=== PATIENT | male | born 1955 | race Caucasian/White ===

== ENCOUNTER 2018-08-19 10:38 | Inpatient (IN) | payer BC, OTHER ==
[~2018-08-19] VITALS: Ht 180.3 cm; Wt 73.9 kg
[2018-08-19] VITALS (9 sets, daily range): BP systolic 100–147; BP diastolic 63–83
[2018-08-19 11:06] LABS: BASOPHILS % (AUTO) 0 % (0-10); EOSINOPHILS % (AUTO) 1 % (0-10); LYMPHOCYTES # (AUTO) 1.4 X 10^3 (1.0-4.0); LYMPHOCYTES % (AUTO) 17 % (12-44); MEAN CORPUSCULAR HEMOGLOBIN 21 PG (25-34); MEAN CORPUSCULAR HGB CONC 28 G/DL (32-36); MEAN CORPUSCULAR VOLUME 76 FL (80-99); MEAN PLATELET VOLUME 10.1 FL (7.4-10.4); MONOCYTES # (AUTO) 0.7 X 10^3 (0.0-1.0); MONOCYTES % (AUTO) 9 % (0-12); NEUTROPHILS # (AUTO) 5.9 X 10^3 (1.8-7.8); NEUTROPHILS % (AUTO) 74 % (42-75); PLATELET COUNT 297 10^3/uL (130-400); RED CELL DISTRIBUTION WIDTH 17.6 % (10.0-14.5); WHITE BLOOD COUNT 8.1 10^3/uL (4.3-11.0)
[2018-08-19 11:09] LABS: HEMATOCRIT 20 % (40-54); HEMOGLOBIN 5.6 G/DL (13.3-17.7)
[2018-08-19 11:15] LABS: BILIRUBIN,URINE NEGATIVE (NEGATIVE); CLARITY,URINE CLEAR; COLOR,URINE YELLOW; GLUCOSE, URINE (UA) 1+ (NEGATIVE); KETONES,URINE NEGATIVE (NEGATIVE); LEUKOCYTE ESTERASE ,URINE NEGATIVE (NEGATIVE); NITRITE,URINE NEGATIVE (NEGATIVE); PH,URINE 6 (5-9); PROTEIN,URINE NEGATIVE (NEGATIVE); UROBILINOGEN,URINE NORMAL (NORMAL)
--- NOTE | 2018-08-19 11:18 | ED General ---
General Chief Complaint: General Problems/Pain Stated Complaint: LOW HEMOGLOBLIN Nursing Triage Note: PT PRESENTS TO ER VIA EMS FROM [facility] WITH CONCERNS OF LOW HEMOGLOBIN. PT STATES HE WAS FEELING WEAK THIS MORNING AND CO-WORKERS MENTIONED HE WAS PALE SO HE WENT TO THE CLINIC. THEY DID LABS WHICH REPORTED A HEMOGLOBIN OF 5.1 AND HEMATOCRIT OF 17. PT DENIES ANY BLOOD IN STOOL OR SECRETIONS. PT DENIES ANY PAIN BUT STATES HE IS UNCOMFORTABLE. Nursing Sepsis Screen: No Definite Risk Source of Information: Patient Exam Limitations: No Limitations History of Present Illness Date Seen by Provider: Aug 19, 2018 Time Seen by Provider: 10:45 Initial Comments Here with reported hemoglobin 5.1 is [place] [facility]. They sent him here by ambulance for concerns of the low hemoglobin. Patient denies chest pain but does admit to increasing shortness of breath. He presented to them because of concerns of family members and friends who stated that he looked pale. Denies vomiting blood or blood in his stool or urine. Does have history of stomach p roblems and takes qbdw-ayc-obwdiry acid lay midwife for that. Has not had problems with hemoglobin before. Denies any significant pain. In talking with him about this problem, patient states he does not want to stay in the hospital because he is afraid because the family members in the hospital. He states it makes him very anxious do think about it but he does want the evaluation. Timing/Duration: 1 Week, Changing Over Time Severity: Moderate Associated Systoms: No Chest Pain, No Cough, No Fever/Chills, No Nausea/Vomiting; Shortness of Air, Weakness Allergies and Home Medications Allergies Coded Allergies: No Known Drug Allergies (Unverified , 08/19/18) Patient Home Medication List Home Medication List Reviewed: Yes Review of Systems Review of Systems Constitutional: see HPI; No chills, No fever EENTM: no symptoms reported Respiratory: see HPI Cardiovascular: No chest pain, No palpitations Gastrointestinal: abdominal pain (epigastric); No nausea, No vomiting Genitourinary: no symptoms reported Musculoskeletal: no symptoms reported Skin: no symptoms reported Psychiatric/Neurological: Anxiety; Denies Headache; Weakness Hematologic/Lymphatic: Anemia; Denies Easy Bleeding All Other Systems Reviewed Negative Unless Noted: Yes Past [place]-Hvhhdi-Yerdxg Hx Past Med/Social Hx: Reviewed Nursing Past Med/Soc Hx Patient Social History Alcohol Use: Denies Use Recreational Drug Use: No Smoking Status: Current Everyday Smoker Type Used: Cigarettes Recent Foreign Travel: No Contact w/Someone Who Travel: No Recent Infectious Disease Expo: No Recent Hopitalizations: No Seasonal Allergies Seasonal Allergies: No Past Medical History Surgeries: Yes (SHOULDER ) Orthopedic Respiratory: No Cardiac: No Neurological: No Genitourinary: No Gastrointestinal: Yes Gastroesophageal Reflux Musculoskeletal: Yes Chronic Back Pain Endocrine: No HEENT: No Cancer: No Psychosocial: No Integumentary: No Blood Disorders: No Family Medical History Reviewed Nursing Family Hx Physical Exam Vital Signs Vital Signs - First Documented 08/19/18 10:38 Temp 98.0 Pulse 99 Resp 17 B/P (MAP) 150/73 (98) Pulse Ox 99 O2 Delivery Room Air Capillary Refill : Less Than 3 Seconds Height, Weight, BMI Height: 5'11.00" Weight: 163lbs. oz. 73.406488pu; BMI Method:Stated General Appearance: No Apparent Distress, WD/WN HEENT: PERRL/EOMI, Pharynx Normal, Pale Conjunctivae (L), Pale Conjunctivae (R) Neck: Full Range of Motion, Normal Inspection, Non Tender, Supple Respiratory: Lungs Clear, Normal Breath Sounds Cardiovascular: No Murmur, Tachycardia Gastrointestinal: Normal Bowel Sounds, No Organomegaly, No Pulsatile Mass, Non Tender, Soft Genital/Rectal: Heme Positive Stool; No Tenderness Back: Normal Inspection, No CVA Tenderness, No Vertebral Tenderness Extremity: Normal Range of Motion, Non Tender Neurologic/Psychiatric: Alert, Oriented x3 Skin: Normal Color, Warm/Dry Progress/Results/Core Measures Suspected Sepsis Recent Fever Within 48 Hours: No Infection Criteria Present: None New/Unexplained Altered Menta: No Sepsis Screen: No Definite Risk SIRS Temperature:98.0 Pulse: 99 Respiratory Rate: 17 Laboratory Tests 08/19/18 10:45: White Blood Count 8.1 Blood Pressure 150 /73 Mean: 98 Laboratory Tests 08/19/18 10:45: Platelet Count 297 Results/Orders Lab Results Laboratory Tests Test 08/19/18 10:45 08/19/18 11:08 Range/Units White Blood Count 8.1 4.3-11.0 10^3/uL Red Blood Count 2.64 L 4.35-5.85 10^6/uL Hemoglobin 5.6 *L 13.3-17.7 G/DL Hematocrit 20 *L 40-54 % Mean Corpuscular Volume 76 L 80-99 FL Mean Corpuscular Hemoglobin 21 L 25-34 PG Mean Corpuscular Hemoglobin Concent 28 L 32-36 G/DL Red Cell Distribution Width 17.6 H 10.0-14.5 % Platelet Count 297 130-400 10^3/uL Mean Platelet Volume 10.1 7.4-10.4 FL Neutrophils (%) (Auto) 74 42-75 % Lymphocytes (%) (Auto) 17 12-44 % Monocytes (%) (Auto) 9 0-12 % Eosinophils (%) (Auto) 1 0-10 % Basophils (%) (Auto) 0 0-10 % Neutrophils # (Auto) 5.9 1.8-7.8 X 10^3 Lymphocytes # (Auto) 1.4 1.0-4.0 X 10^3 Monocytes # (Auto) 0.7 0.0-1.0 X 10^3 Eosinophils # (Auto) 0.0 0.0-0.3 10^3/uL Basophils # (Auto) 0.0 0.0-0.1 10^3/uL Urine Color YELLOW Urine Clarity CLEAR Urine pH 6 5-9 Urine Specific [place] 1.005 L 1.016-1.022 Urine Protein NEGATIVE NEGATIVE Urine Glucose (UA) 1+ H NEGATIVE Urine Ketones NEGATIVE NEGATIVE Urine Nitrite NEGATIVE NEGATIVE Urine Bilirubin NEGATIVE NEGATIVE Urine Urobilinogen NORMAL NORMAL MG/DL Urine Leukocyte Esterase NEGATIVE NEGATIVE Urine RBC (Auto) NEGATIVE NEGATIVE Urine RBC NONE /HPF Urine WBC 0-2 /HPF Urine Squamous Epithelial Cells RARE /HPF Urine Renal Epithelial Cells NONE /HPF Urine Crystals NONE /LPF Urine Bacteria NEGATIVE /HPF Urine Casts NONE /LPF Urine Mucus NEGATIVE /LPF Urine Culture Indicated NO My Orders Orders - SHERRY PICKARD MD I-Stat Bedside Testing (08/19/18 10:47) Ct Abd/Pelv W (Appendicitis) (08/19/18 10:56) Iohexol Injection (Omnipaque 350 Mg/Ml 1 (08/19/18 11:30) Received Contrast (Hold Metformin- Contr (08/19/18 11:30) Sodium Chloride Flush (Catheter Flush Sy (08/19/18 11:30) Ns (Ivpb) (Sodium Chloride 0.9% Ivpb Bag (08/19/18 11:30) Ns Iv 1000 Ml (Sodium Chloride 0.9%) (08/19/18 11:52) Ns Iv 1000 Ml (Sodium Chloride 0.9%) (08/19/18 11:48) Lorazepam Injection (Ativan Injection) (08/19/18 12:45) Ed Iv/Invasive Line Start (08/19/18 12:57) Nicotine Patch (Nicoderm Patch) (08/19/18 14:00) Medications Given in ED Current Medications Medications Dose Ordered Sig/Jadyn Route Start Time Stop Time Status Last Admin Dose Admin Iohexol 100 ml ONCE ONCE IV 08/19/18 11:30 08/19/18 11:31 DC 08/19/18 11:30 92 ML Lorazepam 0.5 mg ONCE ONCE IVP 08/19/18 12:45 08/19/18 12:46 DC 08/19/18 12:47 0.5 MG Nicotine 21 mg ONCE ONCE TD 08/19/18 14:00 08/19/18 14:01 DC 08/19/18 14:24 21 MG Sodium Chloride 10 ml NEEDED PRN IV 08/19/18 11:30 08/19/18 11:29 10 ML Vital Signs/I&O 08/19/18 08/19/18 08/19/18 08/19/18 10:38 12:04 12:19 14:06 Temp 98.0 99.1 99.2 99.6 Pulse 99 96 92 98 Resp 17 16 16 18 B/P (MAP) 150/73 (98) 127/78 123/79 131/83 Pulse Ox 99 99 99 99 O2 Delivery Room Air Room Air Room Air Room Air Capillary Refill : Less Than 3 Seconds Blood Pressure Mean: 98 Progress Note : Progress Note Seen and evaluated. IV, labs, EKG, type and cross for 3 units with 1 to give and 2 to hold. We will get CT abdomen and pelvis to evaluate for mass. Hemoccult done and was positive but there was no gross blood or mass on rectal exam. Labs [place] [facility] [place] including chemistries and CBC. BNP was done and was 125. Patient did have a troponin and myoglobin which were negative done here today. CRP was 1.8. See [facility] sheets for further. Monitor patient. 1350: CT and labs complete. I did talk with Dr. Stringer earlier and he came to the ER to evaluate the patient. Patient initially was reluctant to stay and was anxious. He did receive Ativan 0.5 mg IV and this did help. He has had more time to think about it and states he will stay after conversation with Dr. Stringer. The plan is for him to go to endoscopy suite today for upper endoscopy and also received additional blood. The first unit is almost complete. Nicotine 21 mg patch o rdered. Patient is appreciative of that. Patient to be admitted. Dr. Stringer will take him primary. No consult needed at this point. Patient agrees with plan. Patient will be admitted observation due to his stated desire to leave as soon as he can in the morning. Dr. Stringer's trying to is much done as he can for the patient were to leave for the patient's safety. Return to help the patient make an informed decision. Patient to get endoscopy suite and then be admitted by Dr. Stringer. ECG Initial ECG Impression Date: Aug 19, 2018 Initial ECG Impression Time: 10:55 Initial ECG Rate: 96 Initial ECG Rhythm: S.Tach Comment Sinus rhythm with rate of 96. Normal axis. No evidence of ST elevation NM. No previous available for comparison. Interpreted by me. Diagnostic Imaging Diagonstic Imaging: CT Plain Films/CT/US/NM/MRI: abdomen, pelvis Comments [facility] [place] NAME: DUTCH SCHMITT [facility] REC#: [id number] PT STATUS: REG ER : 1955 PHYSICIAN: SHERRY PICKARD MD ADMIT DATE: 08/19/18/ER Draft Date of Exam:08/19/18 CT ABD/PELV W (APPENDICITIS) PROCEDURE: CT abdomen and pelvis with contrast, rule out appendicitis. TECHNIQUE: Multiple contiguous axial images were obtained through the abdomen and pelvis after the administration of intravenous contrast. INDICATION: Decreased hemoglobin. No prior studies are available for comparison. The lung bases are clear. Patient does have a large hiatal hernia. No discrete liver mass is identified. There are multiple small stones within the gallbladder. No biliary duct dilatation is seen. The pancreas and spleen are unremarkable. No adrenal mass is detected. No definite urinary tract calculi or hydronephrosis is seen. Aorta is nonaneurysmal. The small and large bowel loops are normal caliber. There is no obstruction. There is moderate stool in the colon, particularly the right colon. Appendix is not visualized but no inflammatory changes are seen. The bladder is unremarkable. Prostate is unremarkable. There is no ascites. IMPRESSION: 1. Large hiatal hernia. 2. Cholelithiasis without evidence of biliary duct dilatation. 2. Nonvisualized appendix. No inflammatory process in the abdomen or pelvis is identified. Dictated on workstation # [id number] Dict: 08/19/18 1147 Trans: 08/19/18 1157 [facility] [id number] Interpreted by: WILVER RON MD Electronically signed by: Departure Communication (Admissions) Time/Spoke to Admitting Phy: 13:42 Impression Primary Impression: Profound anemia Qualified Codes: D64.9 - Anemia, unspecified Disposition: ADMITTED INPATIENT Condition: Stable Admissions Decision to Admit Reason: Admit from ER (General) Decision to Admit/Date: Aug 19, 2018 Time/Decision to Admit Time: 13:42 SHERRY PICKARD MD Aug 19, 2018 11:18
[2018-08-19] MEDS ORDERED: CATHETER FLUSH 10 ML SYR IV PRN (11:30)
[2018-08-19] MEDS ORDERED: NS 100 ML (IVPB) BAG IV ONE (11:30)
[2018-08-19] MEDS ORDERED: HOLD METFORMIN - RECEIVED CONTRAST 20 ML VIAL IV SCH (11:30)
[2018-08-19] MEDS ORDERED: IOHEXOL 350 MG/ML 100 ML (OMNIPAQUE 350) VIAL IV ONE (11:30)
[2018-08-19] MEDS ORDERED: NS IV 1000 ML 1,000 ML ONE (11:48)
[2018-08-19] MEDS ORDERED: NS IV 1000 ML 1,000 ML IV STA (11:52)
--- NOTE | 2018-08-19 11:57 | Diagnostic Imaging Report ---
PROCEDURE: CT abdomen and pelvis with contrast, rule out appendicitis. TECHNIQUE: Multiple contiguous axial images were obtained through the abdomen and pelvis after the administration of intravenous contrast. INDICATION: Decreased hemoglobin. No prior studies are available for comparison. The lung bases are clear. Patient does have a large hiatal hernia. No discrete liver mass is identified. There are multiple small stones within the gallbladder. No biliary duct dilatation is seen. The pancreas and spleen are unremarkable. No adrenal mass is detected. No definite urinary tract calculi or hydronephrosis is seen. Aorta is nonaneurysmal. The small and large bowel loops are normal caliber. There is no obstruction. There is moderate stool in the colon, particularly the right colon. Appendix is not visualized but no inflammatory changes are seen. The bladder is unremarkable. Prostate is unremarkable. There is no ascites. IMPRESSION: 1. Large hiatal hernia. 2. Cholelithiasis without evidence of biliary duct dilatation. 2. Nonvisualized appendix. No inflammatory process in the abdomen or pelvis is identified. Dictated by: Dictated on workstation # [id number]
[2018-08-19 12:04] LABS: BACTERIA,URINE NEGATIVE /HPF; SQUAMOUS EPITHELIAL CELL,UR RARE /HPF; WBC,URINE 0-2 /HPF
[2018-08-19] MEDS ORDERED: LORazepam INJ 2 MG/ML (ATIVAN) VIAL IVP ONE (12:45)
[2018-08-19] MEDS ORDERED: NICOTINE 21 MG (NICODERM) PATCH TD ONE (14:00)
--- NOTE | 2018-08-19 14:32 | History & Physical-Surgical ---
History of Present Illness History of Present Illness Reason for visit/HPI patient seen and evaluated in emergency department per request of Dr. Shah for profound anemia Patient is a 62-year-old male who states last few weeks is been having more epigastric abdominal pain. He states it's aching burning in nature. maybe goes into the back times. takes some sair-ppq-pgxdrvr acid direct response consultant states she's had a history of stomach issues. patient has been extremely weak last few days and coworker stating he looks pale.Doesn't was seen to be having any significant reflux he states right now. He just wasn't feeling too well today and went to the urgent care where he was found to have his hemoglobin in the range of 5. Patient states that he is not seen really any dark or bloody stools. Patient states that he will drink approximately 4 months or energy drinks per day. He'll also have double shot espressos at times. This is just his energy level. Patient has a lot of anxiety in terms of being in the hospital due to past family experiences. He states he will not stay longer He is currently He is currently receiving packed red blood cells. He had a CT scan that was reviewed demonstrating a large hiatal hernia but no other acute inflammatory processes. Patient denies any nausea vomiting fever sweats chills shortness of breath or chest pain. Date of Admission t Date Seen by a Provider: Aug 19, 2018 Time Seen by a Provider: 14:35 I consulted on this patient on 08/19/18 14:27 Attending Physician Kemi Stringer DO Admitting Physician Consult Allergies and Home Medications Allergies Coded Allergies: No Known Drug Allergies (Unverified , 08/19/18) Patient Home Medication List Home Medication List Reviewed: Yes Past Mbwglhc-Qamgvi-Hfputy Hx Patient Social History Alcohol Use: Denies Use Recreational Drug Use: No Smoking Status: Current Everyday Smoker Type Used: Cigarettes Recent Foreign Travel: No Contact w/Someone Who Travel: No Recent Infectious Disease Expo: No Recent Hopitalizations: No Seasonal Allergies Seasonal Allergies: No Surgeries History of Surgeries: Yes (SHOULDER ) Surgeries: Orthopedic Respiratory History of Respiratory Disorde: No Cardiovascular History of Cardiac Disorders: No Neurological History of Neurological Disord: No Genitourinary History of Genitourinary Disor: No Gastrointestinal History of Gastrointestinal Di: Yes Gastrointestinal Disorders: Gastroesophageal Reflux Musculoskeletal History of Musculoskeletal Dis: Yes Musculoskeletal Disorders: Chronic Back Pain Endocrine History of Endocrine Disorders: No HEENT History of HEENT Disorders: No Cancer History of Cancer: No Psychosocial History of Psychiatric Problem: No Integumentary History of Skin or Integumenta: No Blood Transfusions History of Blood Disorders: No Family Medical History Significant Family History: No Pertinent Family Hx Review of Systems Constitutional: weakness EENTM: no symptoms reported Respiratory: no symptoms reported Cardiovascular: no symptoms reported Gastrointestinal: no symptoms reported Genitourinary: no symptoms reported Musculoskeletal: no symptoms reported Skin: see HPI Psychiatric/Neurological: No Symptoms Reported Physical Exam Vital Signs Vital Signs - First Documented 08/19/18 10:38 Temp 98.0 Pulse 99 Resp 17 B/P (MAP) 150/73 (98) Pulse Ox 99 O2 Delivery Room Air Capillary Refill : Less Than 3 Seconds Height, Weight, BMI Height: 5'11.00" Weight: 163lbs. oz. 73.067632do; BMI Method:Stated General Appearance: No Apparent Distress, Anxious HEENT: PERRL/EOMI, Normal ENT Inspection Neck: Non Tender, Supple Respiratory: Chest Non Tender, No Accessory Muscle Use, No Respiratory Distress Cardiovascular: Regular Rate, Rhythm Gastrointestinal: Soft, Tenderness (minimal epigastric) Rectal: Deferred Back: No CVA Tenderness Extremity: Normal Inspection, Normal Range of Motion, Non Tender Neurologic/Psychiatric: Alert, Oriented x3, No Motor/Sensory Deficits, Normal Mood/Affect, ink maker II-XII Norm as Tested Skin: Warm/Dry, Pallor Lymphatic: No Adenopathy Data Review Labs Laboratory Tests 08/19/18 10:45: White Blood Count 8.1, Red Blood Count 2.64L, Hemoglobin 5.6*L, Hematocrit 20*L, Mean Corpuscular Volume 76L, Mean Corpuscular Hemoglobin 21L, Mean Corpuscular Hemoglobin Concent 28L, Red Cell Distribution Width 17.6H, Platelet Count 297, Mean Platelet Volume 10.1, Neutrophils (%) (Auto) 74, Lymphocytes (%) (Auto) 17, Monocytes (%) (Auto) 9, Eosinophils (%) (Auto) 1, Basophils (%) (Auto) 0, Neutrophils # (Auto) 5.9, Lymphocytes # (Auto) 1.4, Monocytes # (Auto) 0.7, Eosinophils # (Auto) 0.0, Basophils # (Auto) 0.0 08/19/18 11:08: Urine Color YELLOW, Urine Clarity CLEAR, Urine pH 6, Urine Specific [place] 1.005L, Urine Protein NEGATIVE, Urine Glucose (UA) 1+H, Urine Ketones NEGATIVE, Urine Nitrite NEGATIVE, Urine Bilirubin NEGATIVE, Urine Urobilinogen NORMAL, Urine Leukocyte Esterase NEGATIVE, Urine RBC (Auto) NEGATIVE, Urine RBC NONE, Urine WBC 0-2, Urine Squamous Epithelial Cells RARE, Urine Renal Epithelial Cells NONE, Urine Crystals NONE, Urine Bacteria NEGATIVE, Urine Casts NONE, Urine Mucus NEGATIVE, Urine Culture Indicated NO Assessment/Plan Assessment/Plan Admission Diagonsis profound anemia Hiatal hernia Suspect ulcer we'll place on Protonix IV. Nothing by mouth We discussed risk and benefits of having EGD performed. He understands risk and benefits and wishes to proceed. We'll plan on doing this today. Transfuse PRBCs as needed Patient only agrees at this time to stay overnight for observation. Patient informed that we will discuss his ongoing care and try everything to keep him safe. Admission Status: Observation Assessment/Plan profound anemia Hiatal hernia Suspect ulcer we'll place on Protonix IV. Nothing by mouth We discussed risk and benefits of having EGD performed. He understands risk and benefits and wishes to proceed. We'll plan on doing this today. Transfuse PRBCs as needed Patient only agrees at this time to stay overnight for observation. Patient informed that we will discuss his ongoing care and try everything to keep him safe. KEMI STRINGER DO Aug 19, 2018 14:32
[2018-08-19] MEDS ORDERED: LACTATED RINGERS 1,000 ML IV ONE (15:22)
[2018-08-19] MEDS ORDERED: PROPOFOL INJECTION 50 ML IV ONE (15:31)
[2018-08-19] MEDS ORDERED: MIDAZOLAM 2 MG/2 ML (VERSED) VIAL ONE (15:32)
[2018-08-19] MEDS ORDERED: LACTATED RINGERS 1,000 ML IV STA (15:40)
[2018-08-19] MEDS ORDERED: HURRICAINE EXT TUBE (BENZOCAINE) XX PRN (15:45)
[2018-08-19] MEDS ORDERED: HURRICAINE EXT TUBE (BENZOCAINE) ONE (16:17)
--- NOTE | 2018-08-19 16:45 | NUR ---
DUTCH SCHMITT admitted to room 426-1, with an admitting diagnosis of anemima weakness, on from [facility] via W/C, accompanied by [facility] STAFF AND S.O..DUTCH SCHMITT introduced to surroundings, call light, bed controls, phone, TV, temperature control, lights, meal times, smoking policy, visitor policy, side rail policy, bathrooms and showers. Patient Rights given to patient in the handbook. DUTCH SCHMITT verbalizes understanding that [facility] is not responsible for the loss or damage to any personal effects or valuables that are kept in the patients posession during their hospitalization. The following Patient Care Plans were discussed with the PT: Discharge Planning, IMP GAS EXCH, HIGH RISK INFECTION, ACT. INTOL, AND ANXIETY. DUTCH SCHMITT verbalizes understanding of Interdisciplinary Patient Education. Patient and/or family were informed about the Rapid Response Team and its purpose. PT CAME FROM ER TO ENDO AND THEN TO FLOOR
[2018-08-19] MEDS ORDERED: NS IV 500 ML 500 ML ONE (17:30)
[2018-08-19] MEDS ORDERED: PANTOPRAZOLE 40 MG (PROTONIX) VIAL IV NR (17:45)
--- NOTE | 2018-08-19 17:47 | Progress Note-Post Operative ---
Post-Operative Progess Note Surgeon (s)/Fur Blowing Machine Attendant (s) Surgeon KEMI ROPER DO Fur Blowing Machine Attendant: na Pre-Operative Diagnosis profound anemia Post-Operative Diagnosis hiatal hernia, healing ulcer ge junction, esophagitis Procedure & Operative Findings Date of Procedure 08/19/18 Procedure Performed/Findings egd c biopsies Anesthesia Type per dredge operator Estimated Blood Loss Estimated blood loss (mL): scant Specimens/Packing Specimens Removed ge, distal esophagus KEMI ROPER DO Aug 19, 2018 17:47
[2018-08-19] MEDS: NS IV 500 ML 500 ML IV SCH (19:08)
[2018-08-19] MEDS ORDERED: ESZO3TAB39 PO (19:32)
[2018-08-19] MEDS ORDERED: HYDR15SO8 PO (19:33)
[2018-08-19] MEDS ORDERED: CYCL10TA9 PO (19:34)
--- NOTE | 2018-08-19 19:58 | NUR ---
THIS RN CALLED DR. ROPER IN REGARDS TO THE PT'S TEMPERATURE BEING 100.6 AND PULSE RATE BEING 103 WITH A BLOOD PRESSURE OF 147/73. PT HAS PACKED RED BLOOD CELLS RUNNING AT 125 MLS/HR. ORDERS RECEIVED TO HOLD PACKED RED BLOOD CELLS, TYLENOL 650 MG PO Q6H PRN, A TRANSFUSION WORK UP PER LAB, AND CONSULT HOSPITALIST SHREDDER TENDER PEAT. ORDERS READ BACK AND VERIFIED. BLOOD STOPPED AT THIS TIME.
[2018-08-19] MEDS ORDERED: ACETAMINOPHEN 325 MG TABLET PO PRN (20:00)
--- NOTE | 2018-08-19 20:20 | NUR ---
THIS RN INFORMED DR. SHIRLEY OF CONSULT.
--- NOTE | 2018-08-19 21:55 | NUR ---
THIS RN CALLED DR. SHIRLEY IN REGARDS TO LAB INFORMING THIS RN THAT THE PT'S TRANSFUSION WORK UP WAS NEGATIVE. PT'S TEMPERATURE 100.4 AT THIS TIME. ORDERS RECEIVED TO CONTINUE TO HOLD PACKED RED BLOOD CELLS, 1 VIEW CHEST X-RAY IN THE AM, AND A URINALYSIS. ORDERS READ BACK AND VERIFIED.
--- NOTE | 2018-08-19 22:52 | NUR ---
DR. ROPER CALLED THIS RN AND ORDERED A HEMOGLOBIN AND HEMATOCRIT NOW AND A HEMOGLOBIN AND HEMATOCRIT IN THE MORNING. ORDERS READ BACK AND VERIFIED.
[2018-08-19 23:25] LABS: HEMOGLOBIN 6.2 G/DL (13.3-17.7)
--- NOTE | 2018-08-19 23:28 | NUR ---
THIS RN CALLED DR. SHIRLEY IN REGARDS TO THE PT REQUESTING HOME MEDICATIONS FOR SLEEP. ORDERS RECEIVED FOR CYCLOBENZAPRINE 10 MG PO HS. ORDERS READ BACK AND VERIFIED.
[2018-08-20] VITALS (9 sets, daily range): BP systolic 144–155; BP diastolic 75–87
--- NOTE | 2018-08-20 00:26 | OPERATIVE REPORT ---
DATE OF SERVICE: 08/19/2018 PREOPERATIVE DIAGNOSIS: Profound anemia. POSTOPERATIVE DIAGNOSES: Hiatal hernia, healing ulcer, GE junction esophagitis. PROCEDURE: EGD with biopsies. ANESTHESIA: Per BATH DESIGN SALES CONSULTANT. SURGEON: Kemi Stringer DO ESTIMATED BLOOD LOSS: Scant. COMPLICATIONS: None. INDICATIONS: The patient is a 62-year-old male, who presented to the Emergency Department with profound anemia. He had a CT scan, which demonstrated a large hiatal hernia and he understands risks and benefits and wishes to proceed with procedure. Consent was signed and on the chart. DESCRIPTION OF PROCEDURE: The patient was taken to the endoscopy suite, placed in left lateral recumbent position. Timeout was performed. Scope was inserted in mouth, down the esophagus, stomach and into the duodenum without difficulty. There were no polyps, masses or ulcerations in the duodenum. Scope was slowly retracted back to the stomach where it was further insufflated. There were no polyps, masses or ulcerations or erythematous changes in the antrum. The scope was retroflexed noting a hiatal hernia, moderate size. No other pathology noted. Scope was returned to its normal position, slowly withdrawn to the distal esophagus. At the GE junction, there appears to be a small healing ulcer present in this area. There was no active bleeding. Biopsy around this area was obtained. Scope was then slowly retracted back into the distal esophagus with some changes of esophagitis present. A questionable Good's biopsy was obtained. Scope was then slowly retracted back to completely remove, noting no other pathology. RECOMMENDATIONS: The patient is to continue on Protonix IV at this time. We will follow his hemoglobin. He is going to continue to transfuse as needed. I would recommend a colonoscopy to rule out any lower GI source of bleeding if patient is agreeable, if not, would recommend highly getting one on an outpatient basis. Job ID: [id number] DocumentID: [id number] Dictated Date: 08/19/2018 17:48:26 Track Broom Operator Date: 08/20/2018 00:25:33 Dictated By: KEMI STRINGER DO
[2018-08-20] MEDS ORDERED: CYCLOBENZAPRINE 10 MG (FLEXERIL) TAB ONE (01:26)
[2018-08-20] MEDS: CYCLOBENZAPRINE 10 MG (FLEXERIL) TAB PO SCH ×2 (01:33→20:43)
[2018-08-20 05:23] LABS: BILIRUBIN,URINE NEGATIVE (NEGATIVE); CLARITY,URINE CLEAR; COLOR,URINE YELLOW; GLUCOSE, URINE (UA) NEGATIVE (NEGATIVE); KETONES,URINE NEGATIVE (NEGATIVE); LEUKOCYTE ESTERASE ,URINE NEGATIVE (NEGATIVE); NITRITE,URINE NEGATIVE (NEGATIVE); PH,URINE 8 (5-9); PROTEIN,URINE NEGATIVE (NEGATIVE); UROBILINOGEN,URINE NORMAL (NORMAL)
[2018-08-20 05:41] LABS: BACTERIA,URINE NEGATIVE /HPF; SQUAMOUS EPITHELIAL CELL,UR RARE /HPF
[2018-08-20 06:11] LABS: MEAN PLATELET VOLUME 10.6 FL (7.4-10.4); RED CELL DISTRIBUTION WIDTH 16.8 % (10.0-14.5); WHITE BLOOD COUNT 4.7 10^3/uL (4.3-11.0)
[2018-08-20 06:29] LABS: BUN/CREATININE RATIO 9; CALCIUM 8.4 MG/DL (8.5-10.1); CARBON DIOXIDE 22 MMOL/L (21-32); CHLORIDE 111 MMOL/L (98-107); CREATININE SERUM 0.86 MG/DL (0.60-1.30); GFR ESTIMATED > 60; GLUCOSE 96 MG/DL (70-105); POTASSIUM 3.8 MMOL/L (3.6-5.0); SODIUM 140 MMOL/L (135-145)
[2018-08-20 06:33] LABS: HEMOGLOBIN 6.7 G/DL (13.3-17.7)
--- NOTE | 2018-08-20 06:34 | NUR ---
CRITICAL HEMOGLOBIN OF 6.7 CALLED TO THIS RN. NO PHYSICIAN CONTACTED AT THIS TIME DUE TO HEMOGLOBIN TRENDING UPWARD.
[2018-08-20] MEDS: PANTOPRAZOLE 40 MG (PROTONIX) VIAL IV SCH ×2 (08:22→20:43)
--- NOTE | 2018-08-20 09:34 | Diagnostic Imaging Report ---
INDICATION: Fever. Portable chest at 3:45 AM FINDINGS: Heart size and pulmonary vascularity are normal. Lungs are clear. There are no effusions or pneumothoraces. IMPRESSION: No acute abnormalities in the chest. Dictated by: Dictated on workstation # [id number]
[2018-08-20] MEDS: NS IV 500 ML 500 ML IV SCH (10:32)
--- NOTE | 2018-08-20 13:29 | History & Physical-Hospitalist ---
History of Present Illness HPI/Chief Complaint this is a 62-year-old white male who is admitted by Dr. Stringer a hemoglobin of 5. The patient had an upper endoscopy which revealed hiatal hernia with esophageal erosion He is scheduled for colonoscopy tomorrow. his current complaint is that he is not getting his pain medicine. He takes hydrocodone 7.5 every 4 hours for back and shoulder pain for 6 months. In addition he has chronic insomnia. He has not noticed chest pain or shortness of breath or blood in his stools or black tarry stools. Source: patient Exam Limitations: no limitations Date Seen 08/20/18 Time Seen by a Provider: 12:30 Attending Physician Timur Stringer DO PCP Adi Sheridan DO Referring Physician Date of Admission Home Medications & Allergies Home Medications Reviewed patient Home Medication Reconciliation performed by pharmacy medication reconciliations event crew technician and/or nursing. Patients Allergies have been reviewed. Allergies Allergies Coded Allergies No Known Drug Allergies (Unverified08/19/18) Past Bjncoqx-Tkigsh-Dkwebp Hx Past Med/Social Hx: Reviewed Nursing Past Med/Soc Hx Patient Social History Marrital Status: Employed/Student: employed Alcohol Use: Occasionally Uses Alcohol Beverage of Choice: Whiskey Recreational Drug Use: No Smoking Status: Current Everyday Smoker Type Used: Cigarettes Physical Abuse Screen: No Sexual Abuse: No Recent Foreign Travel: No Contact w/other who traveled: No Recent Hopitalizations: No Recent Infectious Disease Expo: No Seasonal Allergies Seasonal Allergies: No Past Medical History Surgeries: Orthopedic Gastrointestinal: Gastroesophageal Reflux, Hiatal Hernia Musculoskeletal: Chronic Back Pain History of Blood Disorders: No Family History Reviewed Nursing Family Hx No Pertinent Family Hx Review of Systems Constitutional: see HPI Musculoskeletal: back pain, muscle pain Physical Exam Physical Exam Vital Signs Capillary Refill : Less Than 3 Seconds Height, Weight, BMI Height: 5'11.00" Weight: 163lbs. 0.0oz. 73.603115se; 22.7 BMI Method:Stated General Appearance: No Apparent Distress, WD/WN HEENT: Normal ENT Inspection, Pale Conjunctivae (R), Other (edentulous) Neck: Full Range of Motion, Normal Inspection, Non Tender, Supple Respiratory: Chest Non Tender, Lungs Clear, Normal Breath Sounds, No Accessory Muscle Use, No Respiratory Distress Cardiovascular: Regular Rate, Rhythm, No Edema, No Gallop, No JVD, No Murmur, Normal Peripheral Pulses Gastrointestinal: Normal Bowel Sounds, No Organomegaly, No Pulsatile Mass, Non Tender, Soft Rectal: Deferred Back: Normal Inspection, No CVA Tenderness, No Vertebral Tenderness Extremity: Normal Capillary Refill, Normal Inspection, Normal Range of Motion, Non Tender, No Calf Tenderness, No Pedal Edema Neurologic/Psychiatric: Alert, Oriented x3, No Motor/Sensory Deficits, Normal 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 Assessment/Plan Admission Diagnosis anemia workup for gastric etiology in process Chronic back pain Insomnia with restless legs Febrile reaction last night blood transfusion-no evidence of transfusion reaction or mismatched blood-resolved narcotics dependence Admission Status: Inpatient Order (span 2 midnights) Reason for Inpatient Admission: GI bleeding Clinical Quality Measures DVT/VTE Risk/Contraindication: Risk Factor Score Per Nursin RFS Level Per Nursing on Admit: 4+=Very High Supervisory-Addendum Brief Supervisory Addendum Notes: this should be a consultation for SURYA Conway MD Aug 20, 2018 13:29
[2018-08-20] MEDS ORDERED: HYDROcodone/APAP 7.5MG-325 MG/15 ML (LORTAB) UDC PO PRN (13:30)
[2018-08-20] MEDS ORDERED: GOLYTELY POWDER 4000 ML BTL PO NR (14:02)
--- NOTE | 2018-08-20 15:55 | Progress Note - Surgery ---
Subjective Date Seen by a Provider: Aug 20, 2018 Time Seen by a Provider: 15:49 Subjective/Events-last exam patient wanted to leave AMA this morning however patient significant other had discussion with him and patient willing to stay no. He had fever during blood transfusion but workup negative for a transfusion reaction. Patient hemoglobin has increased since admission after transfusions. Patient not see any blood or black tarry stools. Patient with no abdominal pain. Patient is extremely anxious. Wanting to go home. Denies any nausea vomiting fever sweats chills shortness of breath or chest pain at this time. Objective Exam Vital Signs Date Time Temp Pulse Resp B/P (MAP) Pulse Ox O2 Delivery O2 Flow Rate FiO2 08/20/18 14:18 98.6 95 149/81 08/20/18 12:07 99.9 100 18 144/83 Room Air 08/20/18 11:56 Room Air 0.00 08/20/18 11:56 99.4 103 20 149/82 (104) 99 Room Air 08/20/18 11:52 99.4 100 149/82 Room Air 08/20/18 08:59 Room Air 08/20/18 08:00 99.2 111 20 153/87 (109) 100 Room Air 08/20/18 04:55 99.1 95 18 146/81 (102) 99 Room Air 08/20/18 00:02 99.5 99 18 152/75 (100) 99 Room Air 08/19/18 21:29 98.8 08/19/18 20:57 99.8 08/19/18 20:04 100.6 103 20 147/78 (101) 98 Room Air 08/19/18 20:00 Room Air 08/19/18 18:15 98.5 77 20 129/71 90 Room Air 08/19/18 17:58 98.5 77 20 147/83 90 Room Air 08/19/18 17:06 OxyMask 10 08/19/18 16:45 98.5 77 20 147/83 90 Room Air 08/19/18 16:45 90 Room Air 10.00 08/19/18 16:25 103 20 100 Room Air 08/19/18 16:20 107 20 100 OxyMask 10 I & O 08/20/18 07:00 Intake Total 1720 ml Output Total 800 ml Balance 920 ml Capillary Refill : Less Than 3 Seconds General Appearance: No Apparent Distress, WD/WN, Anxious HEENT: Normal ENT Inspection, Other (edentulous) Neck: Full Range of Motion, Normal Inspection, Non Tender, Supple Respiratory: Chest Non Tender, No Accessory Muscle Use, No Respiratory Distress Cardiovascular: Regular Rate, Rhythm, Normal Peripheral Pulses Gastrointestinal: normal bowel sounds, non tender Extremity: Normal Capillary Refill, Normal Inspection, Normal Range of Motion, Non Tender, No Calf Tenderness, No Pedal Edema Neurologic/Psychiatric: Alert, Oriented x3, No Motor/Sensory Deficits, Normal 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/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, 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 Norm as Tested Skin: Warm/Dry, Pallor Lymphatic: No Adenopathy Results Lab Laboratory Tests 08/19/18 23:17: Hemoglobin 6.2*L, Hematocrit 21L 08/20/18 05:19: Urine Color YELLOW, Urine Clarity CLEAR, Urine pH 8, Urine Specific [place] 1.010L, Urine Protein NEGATIVE, Urine Glucose (UA) NEGATIVE, Urine Ketones NEGATIVE, Urine Nitrite NEGATIVE, Urine Bilirubin NEGATIVE, Urine Urobilinogen NORMAL, Urine Leukocyte Esterase NEGATIVE, Urine RBC (Auto) NEGATIVE, Urine RBC NONE, Urine WBC NONE, Urine Squamous Epithelial Cells RARE, Urine Crystals NONE, Urine Bacteria NEGATIVE, Urine Casts NONE, Urine Mucus NEGATIVE, Urine Culture Indicated NO 08/20/18 05:28: Hemoglobin 6.7*L, Hematocrit 23L, White Blood Count 4.7, Red Blood Count 2.96L, Mean Corpuscular Volume 77L, Mean Corpuscular Hemoglobin 23L, Mean Corpuscular H emoglobin Concent 29L, Red Cell Distribution Width 16.8H, Platelet Count 254, Mean Platelet Volume 10.6H, Sodium Level 140, Potassium Level 3.8, Chloride Level 111H, Carbon Dioxide Level 22, Anion Gap 7, Blood Urea Nitrogen 8, Creatinine 0.86, Estimat Glomerular Filtration Rate > 60, BUN/Creatinine Ratio 9, Glucose Level 96, Calcium Level 8.4L Assessment/Plan Assessment/Plan Assessment/Plan profound anemia Hiatal hernia on Protonix IV. clear liquid in. After benign We discussed risk and benefits of having colonoscopy performedfor further evaluation of source of bleeding. Patient declined yesterday but willing to proceed today. He will need a GoLYTELY prep today and nothing by mouth after midnight. He understands risk and benefits and wishes to proceed. Transfuse PRBCs as needed Patient willing to stay another night. Patient informed that we will discuss his ongoing care and try everything to keep him safe. Clinical Quality Measures DVT/VTE Risk/Contraindication: Risk Factor Score Per Nursin RFS Level Per Nursing on Admit: 4+=Very High KEMI ROPER DO Aug 20, 2018 15:55
[2018-08-20] MEDS ORDERED: ZOLPIDEM 5 MG (AMBIEN) TAB PO SCH (21:00)
[2018-08-20] MEDS ORDERED: CYCLOBENZAPRINE 10 MG (FLEXERIL) TAB PO SCH (21:00)
[2018-08-21] VITALS (8 sets, daily range): BP systolic 121–151; BP diastolic 63–85
[2018-08-21 05:08] LABS: HEMOGLOBIN 7.3 G/DL (13.3-17.7); MEAN PLATELET VOLUME 10.4 FL (7.4-10.4); RED CELL DISTRIBUTION WIDTH 17.1 % (10.0-14.5); WHITE BLOOD COUNT 6.2 10^3/uL (4.3-11.0)
[2018-08-21 05:28] LABS: BUN/CREATININE RATIO 12; CALCIUM 8.2 MG/DL (8.5-10.1); CARBON DIOXIDE 18 MMOL/L (21-32); CHLORIDE 111 MMOL/L (98-107); CREATININE SERUM 0.84 MG/DL (0.60-1.30); GFR ESTIMATED > 60; GLUCOSE 89 MG/DL (70-105); POTASSIUM 3.3 MMOL/L (3.6-5.0); SODIUM 140 MMOL/L (135-145)
[2018-08-21] MEDS ORDERED: MIDAZOLAM 5 MG/5 ML (VERSED) VIAL ONE (09:14)
[2018-08-21] MEDS ORDERED: PROPOFOL INJECTION 50 ML IV ONE ×2 (09:14→09:39)
[2018-08-21] MEDS ORDERED: LACTATED RINGERS 1,000 ML IV ONE (09:24)
--- NOTE | 2018-08-21 09:24 | NUR ---
Patient to endo at this time.
[2018-08-21] MEDS ORDERED: LACTATED RINGERS 1,000 ML IV SCH (10:15)
--- NOTE | 2018-08-21 10:22 | NUR ---
Patient back to floor at this time, via w/c.
[2018-08-21] MEDS ORDERED: SUCR1TAB36 PO (10:34)
[2018-08-21] MEDS ORDERED: PANT40TA2 PO (10:34)
--- NOTE | 2018-08-21 15:03 | Progress Note-Post Operative ---
Post-Operative Progess Note Surgeon (s)/[place]il [place] Technician (s) Surgeon KEMI ROPER DO [place] Technician: na Pre-Operative Diagnosis profound anemia Post-Operative Diagnosis normal colon Procedure & Operative Findings Date of Procedure 08/21/18 Procedure Performed/Findings colonoscopy Anesthesia Type per director of restaurant operations Estimated Blood Loss Estimated blood loss (mL): none Specimens/Packing Specimens Removed na KEMI ROPER DO Aug 21, 2018 15:03
--- NOTE | 2018-08-21 15:03 | Progress Note - Surgery ---
Subjective Date Seen by a Provider: Aug 21, 2018 Time Seen by a Provider: 08:09 Subjective/Events-last exam Patient anxious. Bowels clear. No new complaints. hgb slightly up. denies n/v fever sweats chills shortness of breath or chest pain. demanding to go home after colonoscopy. Objective Exam Vital Signs Date Time Temp Pulse Resp B/P (MAP) Pulse Ox O2 Delivery O2 Flow Rate FiO2 08/21/18 10:54 OxyMask 9 08/21/18 10:15 92 18 98 Room Air 08/21/18 10:10 94 18 99 Room Air 08/21/18 10:09 OxyMask 0 08/21/18 10:05 91 18 100 Room Air 08/21/18 10:00 91 18 100 OxyMask 6 08/21/18 09:55 89 18 100 OxyMask 9 08/21/18 08:38 100 Room Air 0.00 08/21/18 08:00 99.7 94 18 149/85 (106) 100 Room Air 08/21/18 04:00 99.6 97 18 128/72 (90) 97 Room Air 08/21/18 00:48 99.0 99 18 151/85 (107) 97 Room Air 08/20/18 20:30 Room Air 08/20/18 19:58 99.8 104 18 155/84 (107) 99 Room Air 08/20/18 15:56 99.6 102 20 146/85 (105) 97 Room Air I & O 08/21/18 07:00 Intake Total 2300 ml Output Total 1100 ml Balance 1200 ml Capillary Refill : Less Than 3 Seconds General Appearance: No Apparent Distress, WD/WN HEENT: PERRL/EOMI, Normal ENT Inspection, Pale Conjunctivae (R) Neck: Full Range of Motion, Normal Inspection, Non Tender, Supple Respiratory: Chest Non Tender, No Accessory Muscle Use, No Respiratory Distress Cardiovascular: Regular Rate, Rhythm Gastrointestinal: normal bowel sounds, non tender Extremity: Normal Capillary Refill, Non Tender, No Calf Tenderness, No Pedal Edema Neurologic/Psychiatric: Alert, Oriented x3, No Motor/Sensory Deficits, Normal 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, 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 Tested Skin: Warm/Dry, Pallor Lymphatic: No Adenopathy Results Lab Laboratory Tests 08/21/18 04:36: White Blood Count 6.2, Red Blood Count 3.14L, Hemoglobin 7.3L, Hematocrit 24L, Mean Corpuscular Volume 77L, Mean Corpuscular Hemoglobin 23L, Mean Corpuscular Hemoglobin Concent 30L, Red Cell Distribution Width 17.1H, Platelet Count 257, Mean Platelet Volume 10.4, Sodium Level 140, Potassium Level 3.3L, Chloride Level 111H, Carbon Dioxide Level 18L, Anion Gap 11, Blood Urea Nitrogen 10, Creatinine 0.84, Estimat Glomerular Filtration Rate > 60, BUN/Creatinine Ratio 12, Glucose Level 89, Calcium Level 8.2L Assessment/Plan Assessment/Plan Assessment/Plan profound anemia Hiatal hernia ge junction healing ulcer/erosion on Protonix IV. npo We discussed risk and benefits of having colonoscopy performed for further evaluation of source of bleeding. Patient willing to proceed today an did prep. He understands risk and benefits and wishes to proceed. Patient demanding to go home after scope, will go home on protonix/carafate and depending on Colonoscopy results. Follow up outpatient, instructed will get labs prior to visit. If any change in condition should be re-evaluated at that time. Clinical Quality Measures DVT/VTE Risk/Contraindication: Risk Factor Score Per Nursin RFS Level Per Nursing on Admit: 4+=Very High KEMI ROPER DO Aug 21, 2018 15:03
--- NOTE | 2018-08-21 15:29 | OPERATIVE REPORT ---
DATE OF SERVICE: 08/21/2018 PREOPERATIVE DIAGNOSIS: Profound anemia. POSTOPERATIVE DIAGNOSIS: Normal colon. PROCEDURE: Colonoscopy. SURGEON: Kemi Stringer DO ANESTHESIA: Per RN REHABILITATION. ESTIMATED BLOOD LOSS: None. COMPLICATIONS: None. INDICATIONS: The patient is a 62-year-old male with profound anemia requiring blood transfusion. He understands risks and benefits of procedure and wished to proceed with procedure. Consent was signed in the chart. PROCEDURE: The patient was taken to the endoscopy suite, placed in left lateral recumbent position. Timeout was performed. Digital rectal exam was performed. There were no palpable polyps, masses or ulcerations. Scope was inserted in the rectum and advanced all the way to the cecum with minimal difficulty. Prep was adequate. Scope was then slowly retracted back. There were no polyps, mass or ulceration of the cecum, ascending, transverse, descending and sigmoid colon. Once in the rectum, scope was retroflexed noting no other pathology. Scope was returned to its normal position, slowly withdrawn until completely removed. The patient tolerated procedure well without any complications, taken to recovery room in stable condition. RECOMMENDATIONS: The patient will need repeat colonoscopy in 10 years unless family history of colon cancer, which would then be in 5 years. Any issues before that be seen at that time to be reevaluated. Job ID: [id number] DocumentID: [id number] Dictated Date: 08/21/2018 15:05:57 Circulation Director Date: 08/21/2018 15:28:24 Dictated By: KEMI STRINGER DO
--- NOTE | 2018-08-21 17:44 | DISCHARGE SUMMARY ---
DATE OF SERVICE: ADMITTING DIAGNOSES: Profound anemia, hiatal hernia, suspect ulcer, chronic back pain, insomnia with restless legs. DISCHARGE DIAGNOSES: Profound anemia, hiatal hernia, healing ulcer of the GE junction, esophagitis. ADMITTING PHYSICIAN: Kemi Stringer DO CONSULTING DOCTOR: Dr. Neal. HOSPITAL COURSE: The patient is a 62-year-old male who had been feeling now weak and co-workers states appearing very pale. The patient was seen in urgent care and then transferred to the hospital for his hemoglobin was 5. The patient was admitted to the hospital and transfused packed red blood cells as needed. He had EGD performed that demonstrated a hiatal hernia and a healing ulcer at the GE junction. He was placed on Protonix. The patient concern for another gastrointestinal process, but the patient refused to proceed with colonoscopy. He later changes mind and on 08/21/2018 agreed to proceed with colonoscopy. He took prep on 08/20/2018. Colonoscopy was performed, which was normal. The patient's hemoglobin did rise with a blood transfusion. The patient demanding to be released today and therefore the patient was discharged. Please see discharge instructions from the computer. The patient was discussed prior to a colonoscopy that there are risks from being discharged early, but he understands these risks and still wishes to be discharged after colonoscopy. The patient has family member present with him to take him home after discharge. The patient was discharged on 08/21/2018 with followup arranged. Job ID: [id number] DocumentID: [id number] Dictated Date: 08/21/2018 15:10:47 Early Morning Babysitter Date: 08/21/2018 17:44:03 Dictated By: KEMI STRINGER DO [facility]
--- NOTE | 2018-08-22 13:54 | Anesthesia-General Post-Op ---
MAC Patient Condition Mental Status/LOC: Same as Preop Cardiovascular: Satisfactory Nausea/Vomiting: Absent Respiratory: Satisfactory Pain: Controlled Complications: Absent Post Op Complications Complications None Follow Up Care/Instructions Patient Instructions None needed. Anesthesiology Discharge Order Discharge Order Patient was already discharged to home this morning during post-op rounds. No anesthesia complications were noted by nursing staff prior to discharge. HECTOR REYES DO Aug 22, 2018 13:54
--- NOTE | 2018-08-26 09:48 | Physician Query Clarification ---
PQ-Further Specificity Admission/Discharge Admission Date: Aug 19, 2018 at 14:26 Discharge Date: Aug 21, 2018 at 10:51 The medical record reflects the following clinical scenario: History/Risk Factors: Anemia, hiatal hernia, GERD Clinical Findings: Hgb/Hct 5.6/20, healing GE ulcer Treatment: Transfused 3 U PRBC's, IV Protonix Question: Can you further specify the type and etiology of the profound anemia per the clinical indicators above? Please document a response in the Progress Notes or Discharge Summary. 1. acute blood loss anemia due to healing GE ulcer 2. profound anemia etiology undetermined blood loss not d/t GE ulcer 3. Other, with explanation of the clinical findings. 4. Clinically undetermined, no explanation for the clinical findings. PHYSICIAN RESPONSE Can you specify per above: Clinically undetermined (likely source from ge ulcer but no active bleeding visualized) Please remember a lack of response to the above will prompt a phone page by CDI/Coding staff. In responding to this query, please exercise your independent professional judgment. The purpose of this communication is to more accurately reflect the complexity of your patients condition. The fact that a question is asked does not imply that any particular answer is desired or expected. Thank you for your timely response to this clarification. Requestors name: Ryan THIS PHYSICIAN QUERY FORM IS A PERMANENT PART OF THE MEDICAL RECORD RYAN POMPA Aug 26, 2018 09:48 KEMI ROPER DO Sep 05, 2018 20:59
== END 2018-08-21 10:51 | disposition home or self-care (01) | DRG 811 ==
LOC: EDUNIT# 10:38 → ER 10:39 → ENDO 14:26 → 4TH 14:26 → ENDO 16:42 → 4TH 08-21 10:51 → ENDO 08-21 10:51
PROVIDERS: ADMIT Surgery; ATTEND Surgery
PROC: 0DB48ZX Excision of Esophagogastric Junction, Via Natural or Artificial Opening Endoscopic, Diagnostic (ICD-10-PCS; principal; 2018-08-19 15:37)
PROC: 0DJD8ZZ Inspection of Lower Intestinal Tract, Via Natural or Artificial Opening Endoscopic (ICD-10-PCS; 2018-08-21)
DX: D64.9 Anemia, unspecified (principal); K25.4 Chronic or unspecified gastric ulcer with hemorrhage; K44.9 Diaphragmatic hernia without obstruction or gangrene; K20.9 Esophagitis, unspecified; F17.210 Nicotine dependence, cigarettes, uncomplicated; K21.9 Gastro-esophageal reflux disease without esophagitis; M54.9 Dorsalgia, unspecified; G47.00 Insomnia, unspecified; G25.81 Restless legs syndrome; R50.9 Fever, unspecified; Z79.891 Long term (current) use of opiate analgesic
CPT/HCPCS: 36415; 36430; 71045; 74177; 80048; 81000; 85014; 85018; 85025; 85027; 86850; 86900; 86901; 86920; 88305; 88312; 93005; 96361; 96374; 99291

== ENCOUNTER → 2018-08-19 | Outpatient (CLI) ==
[~2018-08-19] MED LIST: CYCL10TA9 PO; ESZO3TAB39 PO; HYDR15SO8 PO; PANT40TA2 PO; SUCR1TAB36 PO
== END ==
LOC: LABNPT 10:08
PROVIDERS: ATTEND Nurse Practitioner Family
DX: R53.1 Weakness (principal); R06.00 Dyspnea, unspecified
CPT/HCPCS: 82553; 83874; 84484

== ENCOUNTER → 2018-08-26 | Outpatient (CLI) | payer BC ==
[~2018-08-26] MED LIST changes: +CATHETER FLUSH 10 ML SYR IV PRN; +HOLD METFORMIN - RECEIVED CONTRAST 20 ML VIAL IV SCH; +IOHEXOL 350 MG/ML 100 ML (OMNIPAQUE 350) VIAL IV ONE; +NS 100 ML (IVPB) BAG IV ONE
--- NOTE | 2018-08-26 11:36 | Diagnostic Imaging Report ---
PROCEDURE: CT chest with and without contrast. TECHNIQUE: Multiple contiguous axial images were obtained through the chest before and after administration of intravenous contrast. Auto Exposure Controls were utilized during the CT exam to meet ALARA standards for radiation dose reduction. INDICATION: Lung mass. FINDINGS: No comparison available. There is moderate paraseptal and mild centrilobular emphysema. No suspicious pulmonary nodules are seen. No lung mass is seen. There is mild right base atelectasis. There is no edema or pneumonia. There is a moderate-sized hiatal hernia with thickening of the distal esophagus and fluid level distally within the esophagus. Heart size is normal. There is no pericardial effusion. The aorta is normal in caliber. There is no axillary, supraclavicular or mediastinal lymphadenopathy. The mediastinal lymph nodes that are seen are subcentimeter and not particularly suspicious. Limited views of the upper abdomen reveal cholelithiasis and a small [place] fat-containing hernia on the left. There are no suspicious osseous lesions. IMPRESSION: 1. No CT correlate for the reported history of a lung mass. 2. Moderate size hiatal hernia with distal esophageal thickening and layering fluid in the esophagus, if not previously performed, endoscopy to rule out an esophageal mass is recommended. Dictated by: Dictated on workstation # [id number]
== END ==
LOC: RAD FS 10:06
PROVIDERS: ATTEND Nurse Practitioner Family
DX: K44.9 Diaphragmatic hernia without obstruction or gangrene (principal); K22.8 Other specified diseases of esophagus; R91.1 Solitary pulmonary nodule
CPT/HCPCS: 71270

== ENCOUNTER 2018-12-01 09:55 | Inpatient (IN) | payer BC ==
[~2018-12-01] VITALS: Ht 180.3 cm; Wt 74.6 kg
[2018-12-01] VITALS (9 sets, daily range): BP systolic 117–140; BP diastolic 58–82
[~2018-12-01 09:55] MED LIST changes: -CATHETER FLUSH 10 ML SYR IV PRN; -HOLD METFORMIN - RECEIVED CONTRAST 20 ML VIAL IV SCH; -IOHEXOL 350 MG/ML 100 ML (OMNIPAQUE 350) VIAL IV ONE; -NS 100 ML (IVPB) BAG IV ONE
[2018-12-01 10:34] LABS: MEAN PLATELET VOLUME 9.9 FL (7.4-10.4); RED CELL DISTRIBUTION WIDTH 20.1 % (10.0-14.5); WHITE BLOOD COUNT 10.7 10^3/uL (4.3-11.0)
[2018-12-01 10:35] LABS: HEMOGLOBIN 4.3 G/DL (13.3-17.7)
--- NOTE | 2018-12-01 10:56 | ED GI ---
General Chief Complaint: Abdominal/GI Problems Stated Complaint: LOW HEMOGLOBIN Nursing Triage Note: PT TO ROOM 5 PT HAD LAB DRAWN THIS AM AND HBG WAS 4?. PT SENT FROM [facility]. PT VOMITED LARGE AMOUNT OF BLACK EMESIS ON WEDNESDAY Sepsis Screen: No Definite Risk Source of Information: Patient Exam Limitations: No Limitations History of Present Illness Date Seen by Provider: Dec 01, 2018 Time Seen by Provider: 10:57 Initial Comments To ER with reports of anemia. He saw [facility], had outpatient labs drawn and was found to have a hemoglobin of 4. He was here about last month for anemia with hemoglobin of 5, had some dark stools at that point and was subsequently scoped, found to have a healing ulcer of the GE junction. This past week starting on Wednesday he developed some general weakness and shortness of breath. He had leave work early on Wednesday, Wednesday he vomited some dark bloody-appearing emesis, no vomiting blood or dark stools noticed since then. Today due to his overwhelming fatigue he presented to urgent care, had labs drawn and was referred to the emergency room. He drinks 1 alcoholic drink of Tyree and Coke once a week only. Timing/Duration: 1-2 Days Severity/Quality: Moderate Radiation: No Radiation Associated Symptoms: Fatigue Allergies and Home Medications Allergies Coded Allergies: No Known Drug Allergies (Unverified , 08/19/18) Home Medications Cyclobenzaprine HCl 10 Mg Tablet, 10 MG PO HS, (Reported) Eszopiclone 3 Mg Tablet, 3 MG PO DAILY, (Reported) Pantoprazole Sodium 40 Mg Tablet.dr, 40 MG PO DAILY Prescribed by: JAZMIN MEJIA on 08/21/18 1034 Sucralfate 1 Gm Tablet, 1 GM PO ACHS Prescribed by: JAZMIN MEJIA on 08/21/18 1034 Patient Home Medication List Home Medication List Reviewed: Yes Review of Systems Review of Systems Constitutional: see HPI EENTM: No Symptoms Reported Respiratory: No Symptoms Reported Cardiovascular: No Symptoms Reported Gastrointestinal: No Symptoms Reported; Denies Abdominal Pain; Other (he denies abdominal pain) Genitourinary: No Symptoms Reported Musculoskeletal: no symptoms reported Skin: no symptoms reported Psychiatric/Neurological: No Symptoms Reported Endocrine: No Symptoms Reported Past Ehsrtpx-Bhquir-Yejjcx Hx Patient Social History Alcohol Beverage of Choice: Whiskey Type Used: Cigarettes Recent Foreign Travel: No Contact w/Someone Who Travel: No Recent Infectious Disease Expo: No Recent Hopitalizations: No Seasonal Allergies Seasonal Allergies: No Past Medical History Surgeries: Yes (SHOULDER ) Orthopedic Respiratory: No Cardiac: No Neurological: No Genitourinary: No Gastrointestinal: Yes Gastroesophageal Reflux, Hiatal Hernia Musculoskeletal: Yes Chronic Back Pain Endocrine: No HEENT: No Cancer: No Psychosocial: No Integumentary: No Blood Disorders: No Family Medical History No Pertinent Family Hx Physical Exam Vital Signs Vital Signs - First Documented 12/01/18 10:05 Temp 36.5 Pulse 103 Resp 18 B/P (MAP) 165/75 (105) Pulse Ox 94 Capillary Refill : Less Than 3 Seconds Height/Weight/BMI Height: 5'11.00" Weight: 163lbs. 0.0oz. [id number]; 23.00 BMI Method:Stated General Appearance: WD/WN, no apparent distress, other (alert, conversing appropriately mentating well, no nausea and no abdominal pain) Neck: non-tender, full range of motion Respiratory: normal breath sounds, no respiratory distress, no accessory muscle use Cardiovascular: regular rate, rhythm, no murmur Gastrointestinal: normal bowel sounds, non tender, soft Extremities: normal range of motion, non-tender Neurologic/Psychiatric: alert, normal mood/affect, oriented x 3 Skin: normal color, warm/dry Progress/Results/Core Measures Results/Orders Lab Results Laboratory Tests Test 12/01/18 10:12 Range/Units White Blood Count 10.7 4.3-11.0 10^3/uL Red Blood Count 2.47 L 4.35-5.85 10^6/uL Hemoglobin 4.3 *L 13.3-17.7 G/DL Hematocrit 16 *L 40-54 % Mean Corpuscular Volume 66 L 80-99 FL Mean Corpuscular Hemoglobin 17 L 25-34 PG Mean Corpuscular Hemoglobin Concent 26 L 32-36 G/DL Red Cell Distribution Width 20.1 H 10.0-14.5 % Platelet Count 427 H 130-400 10^3/uL Mean Platelet Volume 9.9 7.4-10.4 FL Prothrombin Time 13.4 12.2-14.7 SEC INR Comment 1.0 0.8-1.4 Sodium Level 138 135-145 MMOL/L Potassium Level 3.9 3.6-5.0 MMOL/L Chloride Level 105 98-107 MMOL/L Carbon Dioxide Level 21 21-32 MMOL/L Anion Gap 12 5-14 MMOL/L Blood Urea Nitrogen 18 7-18 MG/DL Creatinine 1.01 0.60-1.30 MG/DL Estimat Glomerular Filtration Rate > 60 BUN/Creatinine Ratio 18 Glucose Level 131 H 70-105 MG/DL Calcium Level 8.6 8.5-10.1 MG/DL Corrected Calcium 8.5 8.5-10.1 MG/DL Total Bilirubin 0.5 0.1-1.0 MG/DL Aspartate Amino Transf (AST/SGOT) 26 5-34 U/L Alanine Aminotransferase (ALT/SGPT) 17 0-55 U/L Alkaline Phosphatase 50 40-136 U/L Total Protein 7.2 6.4-8.2 GM/DL Albumin 4.1 3.2-4.5 GM/DL Serum Alcohol < 10 <10 MG/DL My Orders Orders - ARUN TURNER APRN Protime With Inr (12/01/18 10:48) Comprehensive Metabolic Panel (12/01/18 10:48) Ua Culture If Indicated (12/01/18 10:48) Alcohol (12/01/18 10:48) Chest 1 View, Ap/Pa Only (12/01/18 10:48) Ed Iv/Invasive Line Start (12/01/18 10:48) Red Cells Leukocytes Reduced (12/01/18 10:48) Pantoprazole Injection (Protonix Injecti (12/01/18 11:00) Octreotide Injection (Sandostatin Inje (12/01/18 11:00) Ns (Ivpb) (Sodium C... W/Octreotide Inj (12/01/18 11:00) Type And Screen (12/01/18 10:48) Medications Given in ED Current Medications Medications Dose Ordered Sig/Jadyn Route Start Time Stop Time Status Last Admin Dose Admin Pantoprazole 80 mg ONCE ONCE IV 12/01/18 11:00 12/01/18 11:01 DC 12/01/18 11:10 80 MG Vital Signs/I&O 12/01/18 10:05 Temp 36.5 Pulse 103 Resp 18 B/P (MAP) 165/75 (105) Pulse Ox 94 Blood Pressure Mean: 105 Departure Communication (Admissions) Time/Spoke to Admitting Phy: 11:[address] Mariano, we'll admit the patient, consult surgery. He is currently received 80 mg of Protonix, octreotide drip, blood is now ready and will be started here in the emergency room. We'll admit to the medical floor since he is so stable clinically. I also spoke with Dr. Vazquez, agrees with plan and agrees to consult. Impression Primary Impression: GI bleed Qualified Codes: K25.4 - Chronic or unspecified gastric ulcer with hemorrhage Additional Impression: Anemia Qualified Codes: D64.9 - Anemia, unspecified Disposition: 09 ADMITTED INPATIENT Condition: Stable Admissions Decision to Admit Reason: Admit from ER (General) Decision to Admit/Date: Dec 01, 2018 Time/Decision to Admit Time: 11:19 Departure-Patient Inst. Referrals: JACOB MORGAN DO (PCP/Family) Primary Care Physician ARUN TURNER APRN Dec 01, 2018 10:56
[2018-12-01 11:00] LABS: PROTHROMBIN TIME PATIENT 13.4 SEC (12.2-14.7)
[2018-12-01] MEDS ORDERED: OCTREOTIDE INJECTION 50 MCG in NS (IVPB) 50 ML IV ONE (11:00)
[2018-12-01] MEDS ORDERED: PANTOPRAZOLE 40 MG (PROTONIX) VIAL IV ONE (11:00)
[2018-12-01] MEDS ORDERED: OCTREOTIDE INJECTION 500 MCG in NS (IVPB) 99 ML IV SCH (11:00)
[2018-12-01 11:06] LABS: ALANINE AMINOTRANSFERASE 17 U/L (0-55); ALBUMIN 4.1 GM/DL (3.2-4.5); ALKALINE PHOSPHATASE 50 U/L (40-136); BILIRUBIN,TOTAL 0.5 MG/DL (0.1-1.0); BUN/CREATININE RATIO 18; CALCIUM 8.6 MG/DL (8.5-10.1); CARBON DIOXIDE 21 MMOL/L (21-32); CHLORIDE 105 MMOL/L (98-107); CREATININE SERUM 1.01 MG/DL (0.60-1.30); GFR ESTIMATED > 60; GLUCOSE 131 MG/DL (70-105); POTASSIUM 3.9 MMOL/L (3.6-5.0); SODIUM 138 MMOL/L (135-145); TOTAL PROTEIN 7.2 GM/DL (6.4-8.2)
--- NOTE | 2018-12-01 11:14 | Diagnostic Imaging Report ---
EXAMINATION: Portable erect AP chest at 11:00 a.m. INDICATION: Black emesis. FINDINGS: The heart size is within normal limits and both the heart and the central pulmonary vascularity do seem less prominent than noted on the prior exam of 08/20/2018. There is no evidence for failure, pneumonia or for a pleural effusion to indicate an acute abnormality. The previous CT chest exam of 08/26/2018 noted a moderate size hiatal hernia with distal esophageal thickening. On this exam, the hiatal hernia is again evident and does not seem to have changed significantly. If further evaluation of the hiatal hernia is desired, then I would concur with the recommendation of the previous exam that endoscopy be performed. The mediastinum is not widened. The osseous structures are intact. IMPRESSION: 1. There is no evidence for an acute cardiopulmonary abnormality. 2. The hiatal hernia seen previously is again evident. Recommendations as above. Dictated by: Dictated on workstation # [id number]
[2018-12-01] MEDS ORDERED: NS IV 1000 ML 1,000 ML ONE (11:25)
[2018-12-01] MEDS ORDERED: CATHETER FLUSH 10 ML SYR IV PRN (12:45)
[2018-12-01] MEDS ORDERED: NS IV 500 ML 500 ML IV SCH (12:45)
[2018-12-01] MEDS ORDERED: ONDANSETRON 4 MG/2 ML (SDV) Z0FRAN IV PRN (12:45)
[2018-12-01] MEDS ORDERED: PANT40TA3 PO (12:59)
[2018-12-01] MEDS ORDERED: HYDR-3816 PO (12:59)
--- NOTE | 2018-12-01 13:08 | NUR ---
SPOKE WITH THE PATIENT ABOUT HIS MEDICATIONS. HE LISTED WHAT HE IS TAKING TO ME AND I VERIFIED IT WITH THE EXT MED HX. IN ADDITION TO WHAT IS SHOWN ON THE EXT MED HX HE RECEIVED FLEXERIL 10MG BID #60 11-02-[address] PARSONS'S AT DR. ON SITE. I VERIFIED THIS INFORMATION WITH DR. PARSONS'S OFFICE. HE STATES HE DOES NOT TAKE ANYTHING OTC.
[2018-12-01] MEDS: OCTREOTIDE DRIP 500 MCG/NS 99 ML IV SCH ×4 (13:09→19:22)
[2018-12-01] MEDS: NS IV 1000 ML 1,000 ML IV SCH (13:10)
--- NOTE | 2018-12-01 13:30 | Consultation - Surgery ---
KENNETH BRICEÑO,MED STUDENT 12/01/18 1330: History of Present Illness History of Present Illness Patient Consulted On(charanjit/time) 12/01/18 13:20 Date Seen by Provider: Dec 01, 2018 Time Seen by Provider: 13:15 History of Present Illness Consultation as requested for anemia. Mr. Schneider is a 63 y/o male who presented from primary care to the ED today for anemia with a hemoglobin of 4.3. His only complaint at this time is bilateral lower leg cramping that first began 5 days ago and have been keeping him up at night. Nothing makes the cramps better or worse. He has noticed some shortness of breath and weakness since the leg cramps began. He has a history of anemia which was evaluated by Dr. Stringer in August 2018 with EGD and colonoscopy. The colonoscopy was normal but the EGD showed an ulcer at the GE junction. Patient started protonix and carafate at that time, but today he reports that he was not taking the Carafate as instructed. He did not take all four doses each day and he did not realize that he was supposed to be taking it an hour before meals. He remains on protonix right now and states that this completely takes care of his GERD symptoms. He also recently restarted his B vitamins. He has not noticed any blood in his stools. Denies fever, chills, unintentional weight changes, nausea, vomiting, abdominal pain, or chest pain. Allergies and Home Medications Allergies Coded Allergies: No Known Drug Allergies (Unverified , 08/19/18) Home Medications Cyclobenzaprine HCl 10 Mg Tablet, 10 MG PO BID PRN for MUSCLE SPASMS, (Reported) Eszopiclone 3 Mg Tablet, 3 MG PO HS, (Reported) Hydrocodone/Acetaminophen 1 Each Tablet, 1 TAB PO Q4H PRN for PAIN-MODERATE, (Reported) Pantoprazole Sodium 40 Mg Tablet., 40 MG PO DAILY, (Reported) Patient Home Medication List Home Medication List Reviewed: Yes Past Tstxhmq-Sfbrhq-Snxtwu Hx Patient Social History Alcohol Use: Regular Use (1/week) Recreational Drug Use: No (none currently, used marijuana "years ago") Smoking Status: Current Everyday Smoker (less than 1 pack per day) Type Used: Cigarettes Recent Foreign Travel: No Contact w/Someone Who Travel: No Recent Infectious Disease Expo: No Recent Hopitalizations: No Seasonal Allergies Seasonal Allergies: No Surgeries History of Surgeries: Yes (SHOULDER ) Surgeries: Orthopedic Respiratory History of Respiratory Disorde: No Cardiovascular History of Cardiac Disorders: No Neurological History of Neurological Disord: No Genitourinary History of Genitourinary Disor: No Gastrointestinal History of Gastrointestinal Di: Yes Gastrointestinal Disorders: Gastroesophageal Reflux, Hiatal Hernia, Ulcer (GE junction) Musculoskeletal History of Musculoskeletal Dis: Yes Musculoskeletal Disorders: Chronic Back Pain Endocrine History of Endocrine Disorders: No HEENT History of HEENT Disorders: No Cancer History of Cancer: No Psychosocial History of Psychiatric Problem: No Integumentary History of Skin or Integumenta: No Blood Transfusions History of Blood Disorders: No Family Medical History Significant Family History: Cancer (mom) Review of Systems-General Constitutional: No chills, No fever; weakness EENTM: No hearing loss, No vision loss Respiratory: No cough; short of breath Cardiovascular: No chest pain; palpitations Gastrointestinal: No abdominal pain, No constipation, No diarrhea, No heartburn, No nausea, No vomiting Genitourinary: No dysuria, No frequency Musculoskeletal: No joint pain; muscle cramps Skin: No lesions, No rash Psychiatric/Neurological: Denies Anxiety, Denies Depressed, Denies Headache Physical Exam-General Problems Physical Exam Vital Signs Vital Signs - First Documented 12/01/18 10:05 Temp 36.5 Pulse 103 Resp 18 B/P (MAP) 165/75 (105) Pulse Ox 94 Capillary Refill : Less Than 3 Seconds General Appearance: WD/WN, no apparent distress HEENT: PERRL/EOMI, pharynx normal Neck: non-tender, supple Respiratory: chest non-tender, lungs clear, normal breath sounds, no respiratory distress, no accessory muscle use Cardiovascular: normal peripheral pulses, no edema, no murmur, tachycardia (regular rhythm) Gastrointestinal: non tender, soft, no organomegaly; No distended, No guarding Extremities: no pedal edema, no calf tenderness Neurologic/Psychiatric: alert, normal mood/affect Skin: normal color, warm/dry Lymphatic: no adenopathy Data Review Labs Laboratory Tests 12/01/18 10:12: White Blood Count 10.7, Red Blood Count 2.47L, Hemoglobin 4.3*L, Hematocrit 16*L , Mean Corpuscular Volume 66L, Mean Corpuscular Hemoglobin 17L, Mean Corpuscular Hemoglobin Concent 26L, Red Cell Distribution Width 20.1H, Platelet Count 427H, Mean Platelet Volume 9.9, Prothrombin Time 13.4, INR Comment 1.0, Sodium Level 138, Potassium Level 3.9, Chloride Level 105, Carbon Dioxide Level 21, Anion Gap 12, Blood Urea Nitrogen 18, Creatinine 1.01, Estimat Glomerular Filtration Rate > 60, BUN/Creatinine Ratio 18, Glucose Level 131H, Calcium Level 8.6, Corrected Calcium 8.5, Total Bilirubin 0.5, Aspartate Amino Transf (AST/SGOT) 26, Alanine Aminotransferase (ALT/SGPT) 17, Alkaline Phosphatase 50, Total Protein 7.2, Albumin 4.1, Serum Alcohol < 10 Assessment/Plan Assessment/Plan Assessment/Plan Anemia History of ulcer at GE junction Monitor H/H NPO Colonoscopy in August was normal. Will repeat EGD later today NASEEM SALAZAR DO 12/01/18 1623: History of Present Illness History of Present Illness Time Seen by Provider: 16:01 History of Present Illness Pt seen and examined, hx of Petpic Ulcer and anemia. Unfortunately did not follow up with Dr. Stringer as outpt. Allergies and Home Medications Allergies Coded Allergies: No Known Drug Allergies (Unverified , 08/19/18) Home Medications Cyclobenzaprine HCl 10 Mg Tablet, 10 MG PO BID PRN for MUSCLE SPASMS, (Reported) Eszopiclone 3 Mg Tablet, 3 MG PO HS, (Reported) Hydrocodone/Acetaminophen 1 Each Tablet, 1 TAB PO Q4H PRN for PAIN-MODERATE, (Reported) Pantoprazole Sodium 40 Mg Tablet.dr, 40 MG PO DAILY, (Reported) Assessment/Plan Assessment/Plan Assessment/Plan Profound Anemia Hx of GE jxn ulcer Pt is getting transfused and will do EGD today. Pt was made NPO and will get consent. Supervisory-Addendum Brief Verification & Attestation Participated in pt care: history, MDM, physical Personally performed: exam, history, MDM Care discussed with: Medical Student Procedures: n/a Verification and Attestation of Medical Student E/M Service A medical student performed and documented this service in my presence. I reviewed and verified all information documented by the medical student and made modifications to such information, when appropriate. I personally performed the physical exam and medical decision making. Naseem Salazar, Dec 01, 2018,16:22 KENNETH RBICEÑO,MED STUDENT Dec 01, 2018 13:30 NASEEM SALAZAR DO Dec 01, 2018 16:23
--- NOTE | 2018-12-01 14:15 | History & Physical-Hospitalist ---
[facility] 12/01/18 1415: History of Present Illness HPI/Chief Complaint Pt is a 63 y/o white male with PMH of hiatal hernia, tobacco use, ulcer @ GE junction, and anemia who presented to urgent care for increasing fatigue for approximately a month; CBC at urgent care revealed Hgb of 4. Pt reports 1 episode of coffee ground emesis last week but none since then. Pt denies any episodes of rectal bleeding, bright blood in stool or melena. Also denies SOA, hemoptysis, cough,fevers, chills, BARBER, wt loss, constipation, Diarrhea, hematoc hezia, abd pain, CP, palpitations, or reflux/heartburn sx. 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 Pt was put on PPIs and Sucralfate and D/C home. Was also given recommendations by his doctor to take VitB supplements Pt's diet consists of pasta, hamburgers, microwave dinners, and occasional canned vegetables. Pt also notes he had been drinking Monster energy drinks for years before he stopped (as recommended by his doctor) following his last hospitalization. Pt has smoked approximately half a pack/day of cigarettes for the past 40 years. Also reports hx of "pretty much all drugs" approximately 20 years ago; denies any use of drugs since then. He has also been incarcerated multiple times in the past, last time being "15-20 years ago". Pt has chronic back and shoulder pain and bilat LE muscle stiffness and spasms; Takes Hydrocodone/Acetaminophen for his back @ shoulder pain and Cyclobenzaprine for his LE discomfort. Also has hx of chronic insomnia for which he has been taking Eszopiclone. Source: patient, RN/, old records Exam Limitations: no limitations Date Seen 12/01/18 Time Seen by a Provider: 14:08 Attending Physician Salome Garnett MD PCP Adi Morgan DO Referring Physician Date of Admission Dec 01, 2018 at 11:36 Home Medications & Allergies Home Medications Reviewed patient Home Medication Reconciliation performed by pharmacy medication reconciliations sound effects technician and/or nursing. Patients Allergies have been reviewed. Allergies Allergies Coded Allergies No Known Drug Allergies (Unverified08/19/18) Past Madvogj-Kahwwb-Lptgru Hx Patient Social History Marrital Status: single Employed/Student: employed (works at a [employer]) Alcohol Use: Regular Use (1/week) Alcohol Beverage of Choice: Whiskey (1 mixed drink per week) Recreational Drug Use: No (none currently, used marijuana "years ago") Smoking Status: Current Everyday Smoker (less than 1 pack per day for the past 40 years) Type Used: Cigarettes Recent Foreign Travel: No Contact w/other who traveled: No Recent Hopitalizations: No Recent Infectious Disease Expo: No Seasonal Allergies Seasonal Allergies: No Past Medical History Surgeries: Orthopedic R lung nodulr Currently Using CPAP: No Currently Using BIPAP: No Gastrointestinal: Gastroesophageal Reflux, Hiatal Hernia, Ulcer (GE junction) Musculoskeletal: Chronic Back Pain History of Blood Disorders: No Family History Cancer (mom, lung cancer) Review of Systems Constitutional: No chills, No diaphoresis, No fever; weakness, other (fatigue) EENTM: No ear discharge, No hearing loss, No vision loss Respiratory: No cough, No dyspnea on exertion, No hemoptysis, No short of breath Cardiovascular: No chest pain, No edema, No palpitations Gastrointestinal: No abdominal pain, No constipation, No diarrhea; hematemesis (had 1 eisode a week ago); No heartburn, No jaundice, No loss of appetite, No melena, No nausea Genitourinary: No discharge, No dysuria, No hematuria Musculoskeletal: back pain (chronic), muscle stiffness (bilat LE) Skin: No dryness, No rash Psychiatric/Neurological: Denies Anxiety, Denies Depressed Physical Exam Physical Exam Vital Signs Vital Signs - First Documented 12/01/18 12/01/18 10:05 12:00 Temp 36.5 Pulse 103 Resp 18 B/P (MAP) 165/75 (105) Pulse Ox 94 O2 Delivery Room Air Capillary Refill : Less Than 3 Seconds Height, Weight, BMI Height: 5'11.00" Weight: 163lbs. 0.0oz. 73.398190dz; 22.85 BMI Method:Stated General Appearance: No Apparent Distress, WD/WN, Thin, Other (pt is a white male, unkempt, frail, appears older than his age, pleasant and cooperative) Eyes: Bilateral Eye Normal Inspection, Bilateral Eye Conjunctivae Pale HEENT: Normal ENT Inspection Neck: Full Range of Motion, Normal Inspection, Non Tender, Supple Respiratory: Chest Non Tender, Lungs Clear, Normal Breath Sounds, No Accessory Muscle Use, No Respiratory Distress Cardiovascular: Regular Rate, Rhythm, No Edema, No Gallop, No JVD, No Murmur, Normal Peripheral Pulses Gastrointestinal: Normal Bowel Sounds, No Organomegaly, No Pulsatile Mass, Non Tender, Soft Back: Normal Inspection, No Vertebral Tenderness Extremity: Normal Capillary Refill, Normal Inspection, Normal Range of Motion, Non Tender, No Calf Tenderness, No Pedal Edema Neurologic/Psychiatric: Alert, Oriented x3, No Motor/Sensory Deficits, Normal Mood/Affect Skin: Warm/Dry, Pallor Lymphatic: No Adenopathy Results Results/Procedures Labs Laboratory Tests 12/01/18 10:12 Patient resulted labs reviewed. Assessment/Plan Assessment and Plan Microcytic Anemia Gastroesophageal Ulcer Distal Esophageal Ulcer -Hgb of 4.3 on admission -Administer Blood transfusions 2 units; check Hgb in the morning -NPO for EGD -Order Iron studies -Order fecal occult -Order peripheral blood smear -General surgery consulted, appreciate recommendations -Continue PPI, sucralfate, and Octreotide -Hold any NSAIDs Chronic back and shoulder pain, LE muscle spasms -Continue hydrocodone Chronic insomnia -Constinue Eszopiclone Tobacco use -Smoking cessation counseling was done -Will order Nicotine patch Copy Copies To 1: ADI MORGAN KATELYN M MD 12/01/18 1551: Past Dkrabzu-Kjhnjd-Ilyboy Hx Past Med/Social Hx: Reviewed Nursing Past Med/Soc Hx Assessment/Plan Admission Diagnosis Severe Anemia from GI Bleed Admission Status: Inpatient Order (span 2 midnights) Reason for Inpatient Admission: Severe anemia, Multiple blood transfusions, EGD Diagnosis/Problems Diagnosis/Problems (1) Microcytic anemia Status: Acute (2) Chronic pain Qualifiers: Chronic pain type: chronic pain syndrome Qualified Codes: G89.4 - Chronic pain syndrome (3) Insomnia Status: Chronic Qualifiers: Insomnia type: unspecified Qualified Codes: G47.00 - Insomnia, unspecified (4) GI bleed Status: Acute Qualifiers: GI bleed type/associated pathology: gastric ulcer Qualified Codes: K25.4 - Chronic or unspecified gastric ulcer with hemorrhage Copy Copies To 1: ADI MORGAN DO Supervisory-Addendum Brief Verification & Attestation Participated in pt care: history, MDM, physical Personally performed: exam, history, MDM, supervision of care Care discussed with: Medical Student Procedures: n/a Results interpretation: Verified all documentation Verification and Attestation of Medical Student E/M Service A medical student performed and documented this service in my presence. I reviewed and verified all information documented by the medical student and made modifications to such information, when appropriate. I personally performed the physical exam and medical decision making. Salome Garnett, Dec 01, 2018,15:45 [facility] Dec 01, 2018 14:15 SALOME GARNETT MD Dec 01, 2018 15:51
[2018-12-01] MEDS ORDERED: NICOTINE 21 MG (NICODERM) PATCH TD NR (14:45)
[2018-12-01] MEDS ORDERED: MIDAZOLAM 2 MG/2 ML (VERSED) VIAL ONE (18:06)
[2018-12-01] MEDS ORDERED: proPOfol 200 MG/20 ML (DIPRIVAN) VIAL IV ONE ×2 (18:06→18:18)
[2018-12-01] MEDS ORDERED: HURRICAINE EXT TUBE (BENZOCAINE) ONE (18:09)
[2018-12-01] MEDS ORDERED: LACTATED RINGERS 1,000 ML IV ONE (18:10)
[2018-12-01] MEDS ORDERED: FLU QUADRIvalent (5+ YOA) 2019-2020 (AFLURIA) 0.5 ML IM ONE (18:15)
--- NOTE | 2018-12-01 18:40 | Progress Note-Post Operative ---
Post-Operative Progess Note Surgeon (s)/Appointment Coordinator (s) Surgeon KELVIN SALAZAR DO Appointment Coordinator: none Pre-Operative Diagnosis profound anemia, Hx of Gastric ulcer Post-Operative Diagnosis same Procedure & Operative Findings Date of Procedure 12/01/18 Procedure Performed/Findings EGD with bx Anesthesia Type IV sedation by PUPPET DEVELOPER Estimated Blood Loss Estimated blood loss (mL): scant Specimens/Packing Specimens Removed GE jxn bx KELVIN SALAZAR DO Dec 01, 2018 18:40
--- NOTE | 2018-12-01 18:48 | NUR ---
DUTCH SCHMITT admitted to room 411-1, with an admitting diagnosis of low hgb, on 12/01/18 from ED via wheel chair, accompanied by staff significant other . DUTCH SCHMITT introduced to surroundings, call light, bed controls, phone, TV, temperature control, lights, meal times, smoking policy, visitor policy, side rail policy, bathrooms and showers. Patient Rights given to patient in the handbook. DUTCH SCHMITT verbalizes understanding that [facility] is not responsible for the loss or damage to any personal effects or valuables that are kept in the patients posession during their hospitalization. The following Patient Care Plans and discharge were discussed with the patientt and family. DUTCH SCHMITT verbalizes understanding of Interdisciplinary Patient Education. Patient and family were informed about the Rapid Response Team and its purpose.
[2018-12-01] MEDS ORDERED: LACTATED RINGERS 1,000 ML IV STA (19:26)
[2018-12-01] MEDS ORDERED: HURRICAINE EXT TUBE (BENZOCAINE) XX PRN (19:30)
--- NOTE | 2018-12-01 19:31 | NUR ---
Spoke to Dr. Mariano at 19:31. She gave OK to start home medications (Hydrocodone, Cyclobenzaprine Hcl, Eszopicone, Pantoprazole). Reviewed and reconciled meds.
[2018-12-01] MEDS ORDERED: NON-FORMULARY MEDICATION 1 EA EA (Hydrocodone/Acetaminophen (Hydrocodone-Acetamin 7.5-325) PO PRN (19:45)
[2018-12-01] MEDS: PANTOPRAZOLE 40 MG (PROTONIX) VIAL IV SCH (20:56)
[2018-12-01] MEDS: HYDROcodone/APAP 7.5 MG/325 MG (LORTAB, LORCET PLUS) TABLET PO PRN (20:56)
[2018-12-01] MEDS: ZOLPIDEM 5 MG (AMBIEN) TAB PO SCH (20:57)
[2018-12-01] MEDS ORDERED: NON-FORMULARY MEDICATION 1 EA EA (Eszopiclone 3 MG) PO SCH (21:00)
--- NOTE | 2018-12-01 22:16 | OPERATIVE REPORT ---
DATE OF SERVICE: 12/01/2018 PREOPERATIVE DIAGNOSES: Anemia, history of gastric ulcer. POSTOPERATIVE DIAGNOSES: 1. Anemia, history of gastric ulcer. 2. Hiatal hernia. PROCEDURE: EGD with biopsy. SURGEON: Naseem Vazquez DO. BOILER HOUSE OPERATOR: None. ANESTHESIA: IV sedation by FRACTIONATING STILL OPERATOR. SPECIMEN: Biopsy from the GE junction. BLOOD LOSS: Scant. FLUIDS: Per anesthesia. POSTOPERATIVE CONDITION: Stable. INDICATION FOR PROCEDURE: The patient is a 63-year-old male who had a previous EGD because of anemia and found ulcer at the GE junction. The patient came in again this time with profound anemia. We did make sure it was not bleeding. FINDINGS: The patient had what looked like some healing esophagitis as well as an area at the GE junction, which looked like it may have been where the ulcer was, but was basically healed with some fibrinous material. No active bleeding seen. No blood in the stomach or small intestine. PROCEDURE NOTE: After informed consent was obtained, the patient was brought to the endoscopy suite and placed in bed in the left lateral decubitus position. He was administered IV sedation by the FRACTIONATING STILL OPERATOR who then monitored his vitals the entire time, heart rate, blood pressure and pulse ox. A scope was inserted down the mouth through the esophagus and into the stomach, pushed through the stomach, saw some pinkish liquid, but did not see any obvious bleeding. Pushed through, antrum looked okay, pushed into the first portion of small intestine, duodenum and then looked into the second and almost the third portion, did not see any bleeding, no ulcers. Pulled back slowly into the antrum again saw some maybe mild inflammation. Retroflexed the scope, could not really see very well up in the body of stomach, but did not see any bleeding or signs of bleeding. Pulled the scope up into the GE junction and could see a very large hiatal hernia, took a picture of this and then pulled the scope up to the GE junction and saw what looked like old healed ulcer, took a picture of this and then did a biopsy of the GE junction just to the opposite side of this, suctioned the air out of stomach, pulled the scope up and up the esophagus, little bit higher up looked like also healing area of esophagitis again with fibrinous healing of scar. The upper portion of the esophagus looked good, pulled the scope up and out the mouth. The patient tolerated the procedure, recovered in endoscopy suite. Job ID: [id number] DocumentID: [id number] Dictated Date: 12/01/2018 18:35:27 Sampler Radioactive Waste Date: 12/01/2018 22:15:52 Dictated By: NASEEM VAZQUEZ DO
[2018-12-01] MEDS: CYCLOBENZAPRINE 10 MG (FLEXERIL) TAB PO PRN (22:48)
[2018-12-02] VITALS (13 sets, daily range): BP systolic 120–143; BP diastolic 60–84
[2018-12-02 05:03] LABS: BASOPHILS % (AUTO) 1 % (0-10); EOSINOPHILS # (AUTO) 0.1 10^3/uL (0.0-0.3); EOSINOPHILS % (AUTO) 3 % (0-10); LYMPHOCYTES # (AUTO) 1.3 X 10^3 (1.0-4.0); LYMPHOCYTES % (AUTO) 27 % (12-44); MEAN CORPUSCULAR HEMOGLOBIN 20 PG (25-34); MEAN CORPUSCULAR HGB CONC 28 G/DL (32-36); MEAN CORPUSCULAR VOLUME 71 FL (80-99); MEAN PLATELET VOLUME 10.1 FL (7.4-10.4); MONOCYTES # (AUTO) 0.5 X 10^3 (0.0-1.0); MONOCYTES % (AUTO) 9 % (0-12); NEUTROPHILS # (AUTO) 2.9 X 10^3 (1.8-7.8); NEUTROPHILS % (AUTO) 61 % (42-75); PLATELET COUNT 278 10^3/uL (130-400); RED CELL DISTRIBUTION WIDTH 19.1 % (10.0-14.5); WHITE BLOOD COUNT 4.9 10^3/uL (4.3-11.0)
[2018-12-02 05:16] LABS: HEMATOCRIT 19 % (40-54); HEMOGLOBIN 5.4 G/DL (13.3-17.7)
--- NOTE | 2018-12-02 05:25 | NUR ---
05:15 Received call from lab about critical value HGB = 5.4 ; Hematocrit = 19 05:[address] Moy and notified him of critical value. Received telephone orders to give 2 more units of blood. Will carry out orders and continue to monitor patient.
[2018-12-02 05:32] LABS: ALANINE AMINOTRANSFERASE 20 U/L (0-55); ALBUMIN 3.4 GM/DL (3.2-4.5); ALKALINE PHOSPHATASE 46 U/L (40-136); BILIRUBIN,TOTAL 0.8 MG/DL (0.1-1.0); BUN/CREATININE RATIO 17; CARBON DIOXIDE 24 MMOL/L (21-32); CHLORIDE 108 MMOL/L (98-107); CREATININE SERUM 0.83 MG/DL (0.60-1.30); GFR ESTIMATED > 60; GLUCOSE 96 MG/DL (70-105); POTASSIUM 3.9 MMOL/L (3.6-5.0); SODIUM 138 MMOL/L (135-145); TOTAL PROTEIN 5.8 GM/DL (6.4-8.2)
[2018-12-02] MEDS: OCTREOTIDE DRIP 500 MCG/NS 99 ML IV SCH ×4 (06:02→18:54)
[2018-12-02] MEDS ORDERED: NS IV 500 ML 500 ML ONE (06:31)
--- NOTE | 2018-12-02 08:55 | Progress Note - Hospitalist ---
[facility] 12/02/18 0855: Subjective HPI/CC On Admission Date Seen by Provider: Dec 02, 2018 Time Seen by Provider: 08:16 Pt is a 63 y/o white male with PMH of hiatal hernia, tobacco use, ulcer @ GE enid ction, and anemia who presented to urgent care for increasing fatigue for approximately a month; CBC at urgent care revealed Hgb of 4. Pt reports 1 episode of coffee ground emesis last week but none since then. Pt denies any episodes of rectal bleeding, bright blood in stool or melena. Also denies SOA, hemoptysis, cough,fevers, chills, BARBER, wt loss, constipation, Diarrhea, hematochezia, abd pain, CP, palpitations, or reflux/heartburn sx. 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 Pt was put on PPIs and Sucralfate and D/C home. Was also given recommendations by his doctor to take VitB supplements Pt's diet consists of pasta, hamburgers, microwave dinners, and occasional canned vegetables. Pt also notes he had been drinking Monster energy drinks for years before he stopped (as recommended by his doctor) following his last hospitalization. Pt has smoked approximately half a pack/day of cigarettes for the past 40 years. Also reports hx of "pretty much all drugs" approximately 20 years ago; denies any use of drugs since then. He has also been incarcerated multiple times in the past, last time being "15-20 years ago". Pt has chronic back and shoulder pain and bilat LE muscle stiffness and spasms; Takes Hydrocodone/Acetaminophen for his back @ shoulder pain and Cyclobenzaprine for his LE discomfort. Also has hx of chronic insomnia for which he has been taking Eszopiclone. Subjective/Events-last exam Hgb has increased 5.4 after 2 units of blood transfused Pt is feeling less fatigued this AM Slept well Updated pt on Normal EGD results, Iron study results, and consult with hematology Pt is yet to produce a fecal sample Blood smear results pending Review of Systems General: No Chills, No Night Sweats, No Fatigue, No Malaise HEENT: No Head Aches, No Dysphasia Pulmonary: No Dyspnea, No Cough, No Pleuritic Chest Pain Cardiovascular: No: Chest Pain, Palpitations Gastrointestinal: No: Nausea, Vomiting, Diarrhea, Constipation Genitourinary: No Dysuria Musculoskeletal: leg pain; No: shoulder pain, back pain Neurological: No: Weakness, Numbness Objective Exam Vital Signs Vital Signs Date Time Temp Pulse Resp B/P (MAP) Pulse Ox O2 Delivery O2 Flow Rate FiO2 12/02/18 08:11 37.0 79 18 129/77 (94) 96 Room Air 12/01/18 18:30 10 Capillary Refill : Less Than 3 Seconds General Appearance: No Apparent Distress, WD/WN HEENT: PERRL/EOMI, Normal ENT Inspection Neck: Normal Inspection Respiratory: Chest Non Tender, Lungs Clear, Normal Breath Sounds, No Accessory Muscle Use, No Respiratory Distress Cardiovascular: Regular Rate, Rhythm, No Edema, No Gallop, No JVD, No Murmur Gastrointestinal: Normal Bowel Sounds, No Organomegaly, No Pulsatile Mass, Non Tender, Soft Back: Normal Inspection Extremity: Normal Capillary Refill, Normal Inspection, Normal Range of Motion, Non Tender, No Calf Tenderness, No Pedal Edema Neurologic/Psychiatric: Alert, Oriented x3, No Motor/Sensory Deficits, Normal Mood/Affect Skin: Normal Color, Warm/Dry Lymphatic: No Adenopathy Results/Procedures Lab Laboratory Tests 12/01/18 10:12 12/02/18 04:33 12/02/18 04:35 Patient resulted labs reviewed. Assessment/Plan Assessment and Plan Assess & Plan/Chief Complaint Microcytic Anemia Gastroesophageal Ulcer Distal Esophageal Ulcer -Hgb of 4.3 on admission-->Now 5.3 after 2 units of blood -EGD from (12/01/18) was negative -Iron studies revealed low Iron deficiency -fecal occult-Pending sample production by pt -Peripheral blood smear, pending results -Consulted Hematology, will see pt, appreciate recommendations -General surgery consulted, appreciate recommendations -Continue PPI, sucralfate, and Octreotide -Hold any NSAIDs Chronic back and shoulder pain, LE muscle spasms -Continue hydrocodone Chronic insomnia -Constinue Eszopiclone Tobacco use -Smoking cessation counseling was done -Will order Nicotine patch Clinical Quality Measures DVT/VTE Risk/Contraindication: Risk Factor Score Per Nursin RFS Level Per Nursing on Admit: 3=High ZOYA GARNETT MD 12/02/18 0935: Supervisory-Addendum Brief Verification & Attestation Participated in pt care: history, MDM, physical Personally performed: exam, history, MDM, supervision of care Care discussed with: Medical Student Procedures: n/a Results interpretation: Verified all documentation Verification and Attestation of Medical Student E/M Service A medical student performed and documented this service in my presence. I reviewed and verified all information documented by the medical student and made modifications to such information, when appropriate. I personally performed the physical exam and medical decision making. Zoya Garnett, Dec 02, 2018,09:35 [facility] Dec 02, 2018 08:55 ZOYA GARNETT MD Dec 02, 2018 09:35
[2018-12-02] MEDS ORDERED: PANTOPRAZOLE 40 MG (PROTONIX) TAB PO SCH (09:00)
[2018-12-02] MEDS: NICOTINE 21 MG (NICODERM) PATCH TD SCH (09:07)
[2018-12-02] MEDS: NICOTINE PATCH REMOVAL TP SCH (09:07)
[2018-12-02] MEDS: CYCLOBENZAPRINE 10 MG (FLEXERIL) TAB PO PRN ×2 (09:08→20:28)
[2018-12-02] MEDS: PANTOPRAZOLE 40 MG (PROTONIX) VIAL IV SCH ×2 (09:30→20:29)
--- NOTE | 2018-12-02 10:55 | Consultation - Surgery ---
History of Present Illness History of Present Illness Patient Consulted On(charanjit/time) 12/02/18 10:50 Date Seen by Provider: Dec 02, 2018 Time Seen by Provider: 09:15 History of Present Illness Mr. Schneider is doing well this am and his Hgb is improved to 5.4 today. At the time of his last Hgb reading he had received 2 units of blood, and at the time of this exam was currently receiving another unit. He states he got a good nights sleep and feels better today, and would like to resume a normal diet. Allergies and Home Medications Allergies Coded Allergies: No Known Drug Allergies (Unverified , 08/19/18) Home Medications Cyclobenzaprine HCl 10 Mg Tablet, 10 MG PO BID PRN for MUSCLE SPASMS, (Reported) Eszopiclone 3 Mg Tablet, 3 MG PO HS, (Reported) Hydrocodone/Acetaminophen 1 Each Tablet, 1 TAB PO Q4H PRN for PAIN-MODERATE, (Reported) Pantoprazole Sodium 40 Mg Tablet.dr, 40 MG PO DAILY, (Reported) Past Pnxwjff-Onsxxo-Nupuxe Hx Patient Social History Alcohol Use: Regular Use (1/week) Number of Drinks Today: 0 Recreational Drug Use: No (none currently, used marijuana "years ago") Drug of Choice: PAST HX Smoking Status: Current Everyday Smoker (less than 1 pack per day for the past 40 years) Type Used: Cigarettes Recent Foreign Travel: No Contact w/Someone Who Travel: No Recent Infectious Disease Expo: No Recent Hopitalizations: No Seasonal Allergies Seasonal Allergies: No Surgeries History of Surgeries: Yes (SHOULDER ) Surgeries: Orthopedic Respiratory History of Respiratory Disorde: No Cardiovascular History of Cardiac Disorders: No Neurological History of Neurological Disord: No Genitourinary History of Genitourinary Disor: No Gastrointestinal History of Gastrointestinal Di: Yes Gastrointestinal Disorders: Gastroesophageal Reflux, Hiatal Hernia, Ulcer (GE junction) Musculoskeletal History of Musculoskeletal Dis: Yes Musculoskeletal Disorders: Chronic Back Pain Endocrine History of Endocrine Disorders: No HEENT History of HEENT Disorders: No Cancer History of Cancer: No Psychosocial History of Psychiatric Problem: No Integumentary History of Skin or Integumenta: No Blood Transfusions History of Blood Disorders: No Family Medical History Significant Family History: Cancer (mom, lung cancer) Physical Exam-General Problems Physical Exam Vital Signs Vital Signs - First Documented 10/24/19 10/24/19 10/24/19 10:05 12:00 18:30 Temp 36.5 Pulse 103 Resp 18 B/P (MAP) 165/75 (105) Pulse Ox 94 O2 Delivery Room Air O2 Flow Rate 10 Capillary Refill : Less Than 3 Seconds Data Review Labs Laboratory Tests 12/01/18 11:36: Lab Scanned Report LAB Reports 12/02/18 04:33: Sodium Level 138, Potassium Level 3.9, Chloride Level 108H, Carbon Dioxide Level 24, Anion Gap 6, Blood Urea Nitrogen 14, Creatinine 0.83, Estimat Glomerular Filtration Rate > 60, BUN/Creatinine Ratio 17, Glucose Level 96, Calcium Level 8.0L, Corrected Calcium 8.5, Total Bilirubin 0.8, Aspartate Amino Transf (AST/SGOT) 26, Alanine Aminotransferase (ALT/SGPT) 20, Alkaline Phosphatase 46, Total Protein 5.8L, Albumin 3.4 12/02/18 04:35: White Blood Count 4.9, Red Blood Count 2.71L, Hemoglobin 5.4#*L, Hematocrit 19*L , Mean Corpuscular Volume 71L, Mean Corpuscular Hemoglobin 20L, Mean Corpuscular Hemoglobin Concent 28L, Red Cell Distribution Width 19.1H, Platelet Count 278, Mean Platelet Volume 10.1, Neutrophils (%) (Auto) 61, Lymphocytes (%) (Auto) 27, Monocytes (%) (Auto) 9, Eosinophils (%) (Auto) 3, Basophils (%) (Auto) 1, Neutrophils # (Auto) 2.9, Lymphocytes # (Auto) 1.3, Monocytes # (Auto) 0.5, Eosinophils # (Auto) 0.1, Basophils # (Auto) 0.0, Lactate Dehydrogenase 162 Assessment/Plan Assessment/Plan Assessment/Plan Profound Anemia Hx of GE jxn ulcer EGD results were discussed with the patient and family. Hbg has improved slightly to 5.4 this am. Will continue to receive blood and iron, and will resume normal diet with plans to possibly discharge home tomorrow. Clinical Quality Measures DVT/VTE Risk/Contraindication: Risk Factor Score Per Nursin RFS Level Per Nursing on Admit: 3=High SILVESTRE DEY,MED STUDENT Dec 02, 2018 10:55
--- NOTE | 2018-12-02 11:06 | Progress Note - Surgery ---
SILVESTRE DEY,MED STUDENT 12/02/18 1106: Subjective Date Seen by a Provider: Dec 02, 2018 Time Seen by a Provider: 09:15 Subjective/Events-last exam Mr. Schneider is doing well this am and his Hgb is improved to 5.4 today. At the time of his last Hgb reading he had received 2 units of blood, and at the time of this exam was currently receiving another unit. He states he got a good nights sleep and feels better today, and would like to resume a normal diet. Objective Exam Vital Signs Date Time Temp Pulse Resp B/P (MAP) Pulse Ox O2 Delivery O2 Flow Rate FiO2 12/02/18 10:40 37.4 88 18 143/76 98 Room Air 12/02/18 10:17 37.6 91 18 131/70 98 Room Air 12/02/18 09:15 37.4 91 22 140/73 98 Room Air 12/02/18 08:11 37.0 79 18 129/77 (94) 96 Room Air 12/02/18 07:14 37.2 91 18 134/71 95 Room Air 12/02/18 07:00 89 12/02/18 06:45 37.0 80 18 134/77 98 Room Air 12/02/18 04:06 36.4 93 20 125/72 (89) 97 Room Air 12/02/18 00:34 82 12/02/18 00:00 36.8 87 18 120/68 (85) 99 Room Air 12/01/18 21:00 Room Air 12/01/18 20:19 37.4 99 20 128/64 (85) 97 Room Air 12/01/18 19:01 97 12/01/18 18:35 89 16 97 Room Air 12/01/18 18:30 92 16 100 OxyMask 10 12/01/18 18:02 Room Air 12/01/18 16:27 37.2 90 20 140/82 99 Room Air 12/01/18 15:46 37.2 88 20 135/75 (95) 99 Room Air 12/01/18 14:15 37.2 98 20 128/70 98 Room Air 12/01/18 14:04 94 12/01/18 13:59 37.0 96 20 139/67 98 Room Air 12/01/18 13:24 37.0 106 18 134/72 Room Air 12/01/18 12:00 37.0 106 18 134/72 (92) 97 Room Air 12/01/18 11:50 93 18 124/78 95 I & O 12/02/18 07:00 Intake Total 1076 ml Balance 1076 ml Capillary Refill : Less Than 3 Seconds General Appearance: No Apparent Distress, WD/WN HEENT: PERRL/EOMI, Normal ENT Inspection Neck: Normal Inspection Respiratory: Chest Non Tender, Lungs Clear, Normal Breath Sounds, No Accessory Muscle Use, No Respiratory Distress Cardiovascular: Regular Rate, Rhythm, No Edema, No Gallop, No JVD, No Murmur Gastrointestinal: non tender, soft, no organomegaly; No distended, No guarding Extremity: Normal Capillary Refill, Normal Inspection, Normal Range of Motion, Non Tender, No Calf Tenderness, No Pedal Edema Neurologic/Psychiatric: Alert, Oriented x3, No Motor/Sensory Deficits, Normal Mood/Affect Skin: Normal Color, Warm/Dry Lymphatic: No Adenopathy Results Lab Laboratory Tests 12/01/18 11:36: Lab Scanned Report LAB Reports 12/02/18 04:33: Sodium Level 138, Potassium Level 3.9, Chloride Level 108H, Carbon Dioxide Level 24, Anion Gap 6, Blood Urea Nitrogen 14, Creatinine 0.83, Estimat Glomerular Filtration Rate > 60, BUN/Creatinine Ratio 17, Glucose Level 96, Calcium Level 8.0L, Corrected Calcium 8.5, Total Bilirubin 0.8, Aspartate Amino Transf (AST/SGOT) 26, Alanine Aminotransferase (ALT/SGPT) 20, Alkaline Phosphatase 46, Total Protein 5.8L, Albumin 3.4 12/02/18 04:35: White Blood Count 4.9, Red Blood Count 2.71L, Hemoglobin 5.4#*L, Hematocrit 19*L , Mean Corpuscular Volume 71L, Mean Corpuscular Hemoglobin 20L, Mean Corpuscular Hemoglobin Concent 28L, Red Cell Distribution Width 19.1H, Platelet Count 278, Mean Platelet Volume 10.1, Neutrophils (%) (Auto) 61, Lymphocytes (%) (Auto) 27, Monocytes (%) (Auto) 9, Eosinophils (%) (Auto) 3, Basophils (%) (Auto) 1, Neutrophils # (Auto) 2.9, Lymphocytes # (Auto) 1.3, Monocytes # (Auto) 0.5, Eosinophils # (Auto) 0.1, Basophils # (Auto) 0.0, Lactate Dehydrogenase 162 Assessment/Plan Assessment/Plan Assessment/Plan Profound Anemia Hx of GE jxn ulcer EGD results were discussed with the patient and family. Hbg has improved slightly to 5.4 this am. Will continue to receive blood and iron, and will resume normal diet with plans to possibly discharge home tomorrow. Clinical Quality Measures DVT/VTE Risk/Contraindication: Risk Factor Score Per Nursin RFS Level Per Nursing on Admit: 3=High NASEEM SALAZAR DO 12/02/18 1148: Subjective Time Seen by a Provider: 09:15 Subjective/Events-last exam Pt seen and examined, no complaints; stated he actually got some good sleep last night. Assessment/Plan Assessment/Plan Assessment/Plan Anemia Healing GE jxn ulcer Plan IV Iron infusion, Blood transfusion, follow up with Dr. Stringer as an outpt. Supervisory-Addendum Brief Verification & Attestation Participated in pt care: history, MDM, physical Personally performed: exam, history, MDM Care discussed with: Medical Student Procedures: n/a Verification and Attestation of Medical Student E/M Service A medical student performed and documented this service in my presence. I revie wed and verified all information documented by the medical student and made modifications to such information, when appropriate. I personally performed the physical exam and medical decision making. Naseem Salazar, Dec 02, 2018,11:47 SILVESTRE DEY,MED STUDENT Dec 02, 2018 11:06 NASEEM SALAZAR DO Dec 02, 2018 11:48
[2018-12-02 14:06] LABS: ABSOLUTE RETIC # 23 10e9/L (24-90); RETICULOCYTE % 0.85 % (0.50-2.40)
--- NOTE | 2018-12-02 14:56 | NUR ---
REPORT RECEIVED FROM YEN DOOLEY RN. WILL ASSUME CARE OF THE PATIENT AT THIS TIME. PATIENT IS RESTING IN BED WATCHING TV. S/O AT BEDSIDE. NO NEEDS AT THIS TIME. WILL CONTINUE TO MONITOR
[2018-12-02] MEDS: NS IV 1000 ML 1,000 ML IV SCH (15:15)
[2018-12-02] MEDS: HYDROcodone/APAP 7.5 MG/325 MG (LORTAB, LORCET PLUS) TABLET PO PRN (16:13)
--- NOTE | 2018-12-02 17:32 | CONSULTATION REPORT ---
DATE OF SERVICE: 12/02/2018 The patient is admitted to room 411. REFERRING PHYSICIAN: Zoya Mariano MD IMPRESSION: 1. A 63-year-old male admitted with increasing weakness and profound microcytic anemia. 2. Rule out gastrointestinal blood loss. 3. Similar admission in August 2018 requiring 4 units of PRBC transfusion. 4. Previous EGD with hiatal hernia and GE junction ulcer, although current EGD with healed ulcer and no obvious sites of bleeding. RECOMMENDATIONS: 1. Agree with PRBC transfusion for symptomatic anemia and maintain hemoglobin more than 7 grams per deciliter. 2. Recommend parenteral iron therapy because of profound iron deficiency. 3. The patient will need a capsule endoscopy to look for a site of blood loss and this can be arranged on an outpatient basis. 4. Continue proton pump inhibitor therapy. 5. [facility]2018 at 3:00 p.m. for an office visit. BRIEF HISTORY: The patient is a 63-year-old male came to the emergency room with complaints of increasing weakness. He was noted to have profound anemia with microcytosis and was admitted to the hospital for further management. Hematology consultation was requested for concurrent care. PAST MEDICAL HISTORY: Significant for a similar admission in 2018, at which time he received 4 units of packed red blood cell transfusion. He had an EGD and colonoscopy with a colonoscopy reported as unremarkable. EGD showed hiatal hernia with a small ulcer at the GE junction with biopsies negative for H. pylori. He was treated with proton pump inhibitor and sucralfate and discharged home. The patient mentioned that he felt well until about a week ago when he started becoming weak again and came to the emergency room. He denied any obvious bleeding from anywhere. No hematochezia or melena, no hematuria, no hematemesis or hemoptysis, no history of passing dark or black urine. No other significant past medical history as the patient has not been to a physician for more than 25 years. No surgeries prior to the EGD and colonoscopy except left shoulder surgery for torn muscle and rotator cuff in the past. SOCIAL HISTORY: The patient is not , but he is living with his fiancee since the last two years in [place], [place]. He is currently smoking half pack of cigarettes a day, but has 40- to 46-skko-ugdf history of tobacco use. Currently, he uses 3 to 4 drinks during the weekends. Previously, he used to drink on most evenings either few beer or 3 to 4 hard liquor drinks. Denied any recreational drug use except marijuana during teenage years. 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 He has no children. FAMILY HISTORY: Unremarkable as his parents when he was young. He has a sister who is to be healthy. He does not know family medical history as he does not have significant contact with extended family. PHYSICAL EXAMINATION: GENERAL: Today showed an elderly male, well developed, well nourished, awake and oriented, in no acute distress. VITAL SIGNS: Temperature was 36.8 degrees Celsius, pulse rate of 79, respirations 20, blood pressure 129/73 with a pulse oximetry showing 96% saturation on room air. HEENT: Normocephalic, extraocular muscles intact, conjunctivae slightly pale, oral mucosa moist. NECK: Supple, with no JVD. No cervical, supraclavicular or axillary lymphadenopathy palpable. CHEST: Symmetrical. LUNGS: With slightly diminished breath sounds bilaterally without wheezes or rales. CARDIOVASCULAR: Regular in rate and rhythm. No murmurs or gallops heard. ABDOMEN: Soft, nontender with no hepatosplenomegaly or other masses palpable. EXTREMITIES: Showed no edema. NEUROLOGIC: Grossly intact without focal motor deficits. LABORATORY DATA: CBC done yesterday at the time of admission showed white blood cell count of 10.7, hemoglobin 4.3, MCV 66, RDW 20.1, platelet count 427,000. Repeat CBC today after transfusion of two units of packed red blood cells showed WBC 4.9, hemoglobin 5.4, MCV 71, platelet count 278,000, neutrophil count 2.9 and lymphocyte count 1.3. Absolute reticulocyte count was below normal at 23,000. Chemistry panel done today showed relatively normal electrolytes. BUN was 14 and creatinine 0.83 with GFR more than 60 mL per minute. Liver function studies were within normal limits. Serum iron studies done yesterday showed serum iron less than 10, TIBC elevated at 488 and serum ferritin level of 3.8. Protime was 13.4 with INR of 1.0. The patient had CT scan of the abdomen and pelvis on 08/19/2018, which showed a large hiatal hernia. There was cholelithiasis without evidence of biliary ductal dilatation. Appendix was not visualized. No inflammatory process in the abdomen or pelvis. CT scan of the chest was done on 08/26/2018 showed moderate sized hiatal hernia with distal esophageal thickening and layering fluid in the esophagus. Endoscopy to rule out an esophageal mass was recommended. The patient had a colonoscopy done on 08/21/2018, which showed no evidence of polyps, masses or evidence of bleeding. The patient had an EGD done on 08/19/2018, which showed a large hiatal hernia. This showed no polyps, masses or ulcerations of the duodenum or antrum . There is a large hiatal hernia noted. GE junction showed a small healing ulcer with no active bleeding. Biopsies were obtained. There was distal esophagitis present. Repeat EGD done on 12/01/2018 showed healed ulcer at the GE junction as well as a healing esophagitis. No active bleeding was seen. No blood in the stomach or upper small intestine. Thank you for allowing me to participate in this patient's care. I will follow the patient with you and make appropriate recommendations. Job ID: [id number] DocumentID: [id number] Dictated Date: 12/02/2018 15:57:51 Oiler And Greaser Date: 12/02/2018 17:31:48 Dictated By: MAL MERCEDES MD
[2018-12-02] MEDS: ZOLPIDEM 5 MG (AMBIEN) TAB PO SCH (20:28)
[2018-12-03] MEDS: OCTREOTIDE DRIP 500 MCG/NS 99 ML IV SCH ×2 (04:08)
[2018-12-03 04:13] VITALS: BP 116/69
--- NOTE | 2018-12-03 05:04 | NUR ---
Called Dr. Mariano and informed her that there is no laboratory ordered for patient this AM. Received telephone order for CBC. Notified lab of the order.
[2018-12-03 05:23] LABS: BASOPHILS # (AUTO) 0.1 10^3/uL (0.0-0.1); BASOPHILS % (AUTO) 1 % (0-10); EOSINOPHILS # (AUTO) 0.2 10^3/uL (0.0-0.3); EOSINOPHILS % (AUTO) 4 % (0-10); HEMATOCRIT 24 % (40-54); HEMOGLOBIN 7.1 G/DL (13.3-17.7); LYMPHOCYTES # (AUTO) 1.3 X 10^3 (1.0-4.0); LYMPHOCYTES % (AUTO) 29 % (12-44); MEAN CORPUSCULAR HEMOGLOBIN 22 PG (25-34); MEAN CORPUSCULAR HGB CONC 30 G/DL (32-36); MEAN CORPUSCULAR VOLUME 73 FL (80-99); MEAN PLATELET VOLUME 9.1 FL (7.4-10.4); MONOCYTES # (AUTO) 0.6 X 10^3 (0.0-1.0); MONOCYTES % (AUTO) 13 % (0-12); NEUTROPHILS # (AUTO) 2.5 X 10^3 (1.8-7.8); NEUTROPHILS % (AUTO) 54 % (42-75); PLATELET COUNT 258 10^3/uL (130-400); RED CELL DISTRIBUTION WIDTH 20.6 % (10.0-14.5); WHITE BLOOD COUNT 4.6 10^3/uL (4.3-11.0)
--- NOTE | 2018-12-03 07:50 | Progress Note - Hospitalist ---
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 Pt reports 1 episode of coffee ground emesis last week but none since then. Pt denies any episodes of rectal bleeding, bright blood in stool or melena. Also denies SOA, hemoptysis, cough,fevers, chills, BARBER, wt loss, constipation, Diarrhea, hematochezia, abd pain, CP, palpitations, or reflux/heartburn sx. 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 Pt was put on PPIs and Sucralfate and D/C home. Was also given recommendations by his doctor to take VitB supplements Pt's diet consists of pasta, hamburgers, microwave dinners, and occasional canned vegetables. Pt also notes he had been drinking Novapost energy drinks for years before he stopped (as recommended by his doctor) following his last hospitalization. Pt has smoked approximately half a pack/day of cigarettes for the past 40 years. Also reports hx of "pretty much all drugs" approximately 20 years ago; denies any use of drugs since then. He has also been incarcerated multiple times in the past, last time being "15-20 years ago". Pt has chronic back and shoulder pain and bilat LE muscle stiffness and spasms; Takes Hydrocodone/Acetaminophen for his back @ shoulder pain and Cyclobenzaprine for his LE discomfort. Also has hx of chronic insomnia for which he has been taking Eszopiclone. Review of Systems General: No Chills, No Fatigue HEENT: No Head Aches Pulmonary: No Dyspnea, No Cough Cardiovascular: No: Chest Pain, Palpitations Gastrointestinal: No: Nausea, Vomiting, Diarrhea, Constipation Genitourinary: No Dysuria Musculoskeletal: No: shoulder pain, back pain, leg pain Objective Exam Vital Signs Vital Signs Date Time Temp Pulse Resp B/P (MAP) Pulse Ox O2 Delivery O2 Flow Rate FiO2 12/03/18 09:37 91 Room Air 12/03/18 08:00 35.6 95 18 148/52 (84) 12/01/18 18:30 10 Capillary Refill : Less Than 3 Seconds General Appearance: No Apparent Distress, WD/WN HEENT: Normal ENT Inspection Neck: Normal Inspection, Non Tender Respiratory: Chest Non Tender, Lungs Clear, Normal Breath Sounds, No Accessory Muscle Use, No Respiratory Distress Cardiovascular: Regular Rate, Rhythm, No Edema, No Gallop, No JVD, No Murmur, Normal Peripheral Pulses Back: Normal Inspection Extremity: Normal Capillary Refill, Non Tender, No Calf Tenderness, No Pedal Edema Neurologic/Psychiatric: Alert, Oriented x3, Normal Mood/Affect Results/Procedures Lab Laboratory Tests 12/03/18 05:18 Patient resulted labs reviewed. Assessment/Plan Assessment and Plan Assess & Plan/Chief Complaint Microcytic Anemia Gastroesophageal Ulcer Distal Esophageal Ulcer -Hgb of 4.3 on admission-->Now 7.1 after 4 units of blood -EGD from (12/01/18) was negative -Iron studies revealed low Iron deficiency -fecal occult-Pending sample production by pt -Peripheral blood smear, pending results -Consulted Hematology, will see pt, appreciate recommendations -General surgery consulted, appreciate recommendations -Continue PPI, sucralfate, and Octreotide -Hold any NSAIDs Chronic back and shoulder pain, LE muscle spasms -Continue hydrocodone Chronic insomnia -Constinue Eszopiclone Tobacco use -Smoking cessation counseling was done -Will order Nicotine patch Clinical Quality Measures DVT/VTE Risk/Contraindication: Risk Factor Score Per Nursin RFS Level Per Nursing on Admit: 3=High [facility] Dec 03, 2018 07:50
[2018-12-03 08:00] VITALS: BP 148/52
[2018-12-03] MEDS ORDERED: NS IV 500 ML 500 ML IV SCH (08:07)
[2018-12-03] MEDS: PANTOPRAZOLE 40 MG (PROTONIX) VIAL IV SCH (08:12)
[2018-12-03] MEDS ORDERED: RT-ALBUTEROL SULF 2.5 MG/3 ML PRE-MIX VIAL IH PRN (08:15)
[2018-12-03] MEDS ORDERED: IRON DEXTRAN INJECTION 25 MG in NS (IVPB) 5.75 ML IV NR (08:15)
[2018-12-03] MEDS ORDERED: diphenhydrAMINE 50 MG/ML INJ (BENADRYL) IV PRN (08:15)
[2018-12-03] MEDS ORDERED: EPINEPHrine INJECTION 1 MG/ML AMP IM PRN (08:15)
[2018-12-03] MEDS ORDERED: HYDROCORTISONE 100 MG/2 ML (Solu-CORTEF) VIAL IV PRN (08:15)
[2018-12-03] MEDS ORDERED: IRON DEXTRAN INJECTION 1,000 MG in NS (IVPB) 250 ML IV ONE (08:30)
[2018-12-03] MEDS: NICOTINE PATCH REMOVAL TP SCH (08:34)
[2018-12-03] MEDS: NICOTINE 21 MG (NICODERM) PATCH TD SCH (08:34)
--- NOTE | 2018-12-03 11:08 | Discharge Summary ---
[facility] 12/03/18 1055: Discharge Summary Hospital Course Problems Reviewed?: Yes Hospital Course Date of Admission: Dec 01, 2018 at 11:36 Admission Diagnosis : Family Physician/Provider: Adi Morgan DO Date of Discharge: 12/03/18 Discharge Diagnosis: [ ] Hospital Course: [Mr. Schneider, who has an hx of GE-junction and distal esophageal ulcers, presented to the ED with a Hgb of 4 and 1 episode of coffee ground emesis 1 wk prior to this encounter. Pt had a similar episode back in August, where he presented w/ a Hgb of 5, had a negative colonoscopy but EGD positive for Good's esophagus and Distal erosive esophagitis. For this current encounter, 4 units of blood was transfused which brought his Hgb back up to 7.1. Hemoccult test was positive and CBC and Iron studies showed severe Iron deficiency and Microcytic anemia. A peripheral blood smear also confirmed dx of Microcytic anemia. General surgery was consulted and An EGD was done as well which showed healed ulcers and no new sources of bleeding. Hematology was consulted and recommended parenteral Iron replacement and outpatient f/u for Capsule endoscopy. Parenteral IV Iron was given and Plan for discharge was discussed with pt; Pt understands and agrees. Pt d/c with f/u appointments/instructions for Hematology (Dr. Tran), Gen surgery (Dr. Stringer), and Primary care (Dr. Cadena).] Labs and Pending Lab Test: Laboratory Tests 12/02/18 12:34: Lab Scanned Report Transfusion Reaction Form 12/03/18 05:18: White Blood Count 4.6, Red Blood Count 3.27L, Hemoglobin 7.1#L, Hematocrit 24L, Mean Corpuscular Volume 73L, Mean Corpuscular Hemoglobin 22L, Mean Corpuscular Hemoglobin Concent 30L, Red Cell Distribution Width 20.6H, Platelet Count 258, Mean Platelet Volume 9.1, Neutrophils (%) (Auto) 54, Lymphocytes (%) (Auto) 29, Monocytes (%) (Auto) 13H, Eosinophils (%) (Auto) 4, Basophils (%) (Auto) 1, Neutrophils # (Auto) 2.5, Lymphocytes # (Auto) 1.3, Monocytes # (Auto) 0.6, Eosinophils # (Auto) 0.2, Basophils # (Auto) 0.1 Microbiology 12/01/18 MRSA Screen - Final, Complete MRSA not isolated Home Meds Active Reported Pantoprazole Sodium 40 Mg Tablet.dr 40 Mg PO DAILY Hydrocodone-Acetamin 7.5-325 (Hydrocodone/Acetaminophen) 1 Each Tablet 1 Tab PO Q4H PRN Cyclobenzaprine HCl 10 Mg Tablet 10 Mg PO BID PRN Eszopiclone 3 Mg Tablet 3 Mg PO HS Discharge Diet: No Restrictions Discharge Physical Examination Allergies: Coded Allergies: No Known Drug Allergies (Unverified , 08/19/18) General Appearance: No Apparent Distress, WD/WN HEENT: PERRL/EOMI, Normal ENT Inspection Respiratory: Chest Non Tender, Lungs Clear, Normal Breath Sounds, No Accessory Muscle Use, No Respiratory Distress; No Wheezing Cardiovascular: Regular Rate, Rhythm, No Edema, No Gallop, No JVD, No Murmur, Normal Peripheral Pulses Gastrointestinal: Normal Bowel Sounds, No Organomegaly, No Pulsatile Mass, Non Tender, Soft Extremity: Normal Capillary Refill, Normal Inspection, Normal Range of Motion, Non Tender, No Calf Tenderness, No Pedal Edema Skin: Normal Color, Warm/Dry Neurologic/Psychiatric: Alert, Oriented x3, No Motor/Sensory Deficits, Normal Mood/Affect Copy Copies To 1: ADI MORGAN DO Discharge Summary Date of Admission Dec 01, 2018 at 11:36 Date of Discharge Discharge Date: Dec 03, 2018 Admission Diagnosis Severe Anemia from GI Bleed Discharge Diagnosis Microcytic Anemia Gastroesophageal Ulcer Distal Esophageal Ulcer -Hgb of 4.3 on admission-->Now 7.1 after 4 units of blood -EGD from (12/01/18) was negative -Iron studies revealed low Iron deficiency -fecal occult-Pending sample production by pt -Peripheral blood smear, pending results -Consulted Hematology, will see pt, appreciate recommendations -General surgery consulted, appreciate recommendations -Continue PPI, sucralfate, and Octreotide -Hold any NSAIDs Chronic back and shoulder pain, LE muscle spasms -Continue hydrocodone Chronic insomnia -Constinue Eszopiclone Tobacco use -Smoking cessation counseling was done -Will order Nicotine patch (1) Microcytic anemia Status: Acute (2) Chronic pain Qualifiers: Qualified Codes: G89.4 - Chronic pain syndrome (3) Insomnia Status: Chronic Qualifiers: Qualified Codes: G47.00 - Insomnia, unspecified (4) GI bleed Status: Acute Qualifiers: Qualified Codes: K25.4 - Chronic or unspecified gastric ulcer with hemorrhage Clinical Quality Measures DVT/VTE Risk/Contraindication: Risk Factor Score Per Nursin RFS Level Per Nursing on Admit: 3=High SALOME MARIANO MD 12/07/18 1341: Discharge Summary Hospital Course Problems Reviewed?: Yes Assessment/Pt DC Instructions Please continue to take your medications as written. Activity as Tolerated: Yes Discharge Physical Examination Allergies: Coded Allergies: No Known Drug Allergies (Unverified , 08/19/18) Copy Copies To 1: ADI MORGAN DO Supervisory-Addendum Brief Verification & Attestation Participated in pt care: history, MDM, physical Personally performed: exam, history, MDM, supervision of care Care discussed with: Medical Student Procedures: n/a Results interpretation: Verified all documentation Verification and Attestation of Medical Student E/M Service A medical student performed and documented this service in my presence. I review ed and verified all information documented by the medical student and made modifications to such information, when appropriate. I personally performed the physical exam and medical decision making. Salome Mariano, Dec 07, 2018,13:40 [facility] Dec 03, 2018 10:55 SALOME CHRISTIAN MD Dec 07, 2018 13:41 POS
[2018-12-03 12:00] VITALS: BP 135/77
--- NOTE | 2018-12-03 12:10 | Progress Note ---
Subjective Date Seen by a Provider: Dec 03, 2018 Time Seen by a Provider: 10:00 Subjective/Events-last exam doing well. tolerating diet. hb stable. no signs clinical bleed. Objective Exam Vital Signs Date Time Temp Pulse Resp B/P (MAP) Pulse Ox O2 Delivery O2 Flow Rate FiO2 12/03/18 09:37 91 Room Air 12/03/18 09:00 99 Room Air 12/03/18 08:00 35.6 95 18 148/52 (84) 99 Room Air 12/03/18 07:00 78 12/03/18 04:13 36.0 77 18 116/69 (85) 96 Room Air 12/03/18 01:00 95 12/02/18 23:27 36.0 93 20 141/71 (94) 96 Room Air 12/02/18 21:00 Room Air 12/02/18 19:40 36.4 84 20 124/60 (81) 97 Room Air 12/02/18 19:00 87 12/02/18 16:00 36.9 86 18 141/84 (103) 98 Room Air 12/02/18 12:37 36.8 79 20 129/73 96 Room Air 12/02/18 12:29 86 12/02/18 12:07 37.0 80 20 137/78 (97) 98 Room Air I & O 12/03/18 06:59 Intake Total 1814 ml Output Total 500 ml Balance 1314 ml Capillary Refill : Less Than 3 Seconds General Appearance: No Apparent Distress Neck: Full Range of Motion Respiratory: Chest Non Tender, Lungs Clear, Normal Breath Sounds Cardiovascular: Regular Rate, Rhythm Gastrointestinal: normal bowel sounds, non tender, soft Extremity: Normal Capillary Refill Neurologic/Psychiatric: Alert, Oriented x3 Skin: Normal Color Lymphatic: No Adenopathy Results Lab Laboratory Tests 12/02/18 12:34: Lab Scanned Report Transfusion Reaction Form 12/03/18 05:18: White Blood Count 4.6, Red Blood Count 3.27L, Hemoglobin 7.1#L, Hematocrit 24L, Mean Corpuscular Volume 73L, Mean Corpuscular Hemoglobin 22L, Mean Corpuscular Hemoglobin Concent 30L, Red Cell Distribution Width 20.6H, Platelet Count 258, Mean Platelet Volume 9.1, Neutrophils (%) (Auto) 54, Lymphocytes (%) (Auto) 29, Monocytes (%) (Auto) 13H, Eosinophils (%) (Auto) 4, Basophils (%) (Auto) 1, Neutrophils # (Auto) 2.5, Lymphocytes # (Auto) 1.3, Monocytes # (Auto) 0.6, Eosinophils # (Auto) 0.2, Basophils # (Auto) 0.1 Microbiology 12/01/18 MRSA Screen - Final, Complete MRSA not isolated Assessment/Plan Assessment/Plan Assess & Plan/Chief Complaint GI bleed with gastric ulcer. clinically stable and no clinical bleed. ok for home per surgery Clinical Quality Measures DVT/VTE Risk/Contraindication: Risk Factor Score Per Nursin RFS Level Per Nursing on Admit: 3=High GURMEET PALMA MD Dec 03, 2018 12:10
== END 2018-12-03 13:43 | disposition home or self-care (01) | DRG 812 ==
LOC: EDUNIT# 09:55 → ER 09:56 → 4TH 11:36
PROVIDERS: ADMIT Family Medicine; ATTEND Family Medicine
PROC: 0DB48ZX Excision of Esophagogastric Junction, Via Natural or Artificial Opening Endoscopic, Diagnostic (ICD-10-PCS; principal; 2018-12-01 17:00)
DX: D50.9 Iron deficiency anemia, unspecified (principal); K25.9 Gastric ulcer, unspecified as acute or chronic, without hemorrhage or perforation; K22.10 Ulcer of esophagus without bleeding; K44.9 Diaphragmatic hernia without obstruction or gangrene; K21.9 Gastro-esophageal reflux disease without esophagitis; M54.9 Dorsalgia, unspecified; G47.00 Insomnia, unspecified; F17.210 Nicotine dependence, cigarettes, uncomplicated
CPT/HCPCS: 36415; 36430; 71045; 80053; 80320; 82274; 82728; 83540; 83615; 85025; 85027; 85045; 85610; 86850; 86900; 86901; 86920; 87081; 93005; 94760; 96365; 96375

== ENCOUNTER 2019-01-24 14:14 | Outpatient (RCR) | payer BC ==
[2018-12-26 15:10] LABS: BASOPHILS # (AUTO) 0.1 10^3/uL (0.0-0.1); BASOPHILS % (AUTO) 1 % (0-10); EOSINOPHILS # (AUTO) 0.1 10^3/uL (0.0-0.3); EOSINOPHILS % (AUTO) 2 % (0-10); HEMATOCRIT 41 % (40-54); HEMOGLOBIN 12.5 G/DL (13.3-17.7); LYMPHOCYTES # (AUTO) 1.9 X 10^3 (1.0-4.0); LYMPHOCYTES % (AUTO) 26 % (12-44); MEAN CORPUSCULAR HEMOGLOBIN 25 PG (25-34); MEAN CORPUSCULAR HGB CONC 30 G/DL (32-36); MEAN CORPUSCULAR VOLUME 81 FL (80-99); MEAN PLATELET VOLUME 9.6 FL (7.4-10.4); MONOCYTES # (AUTO) 0.6 X 10^3 (0.0-1.0); MONOCYTES % (AUTO) 8 % (0-12); NEUTROPHILS # (AUTO) 4.4 X 10^3 (1.8-7.8); NEUTROPHILS % (AUTO) 63 % (42-75); PLATELET COUNT 389 10^3/uL (130-400); RED CELL DISTRIBUTION WIDTH 24.5 % (10.0-14.5); WHITE BLOOD COUNT 7.1 10^3/uL (4.3-11.0)
[2018-12-26 15:27] LABS: ALANINE AMINOTRANSFERASE 29 U/L (0-55); ALBUMIN 4.6 GM/DL (3.2-4.5); ALKALINE PHOSPHATASE 59 U/L (40-136); BILIRUBIN,TOTAL 0.3 MG/DL (0.1-1.0); BUN/CREATININE RATIO 10; CALCIUM 9.9 MG/DL (8.5-10.1); CARBON DIOXIDE 26 MMOL/L (21-32); CHLORIDE 107 MMOL/L (98-107); CREATININE SERUM 0.93 MG/DL (0.60-1.30); GFR ESTIMATED > 60; GLUCOSE 92 MG/DL (70-105); POTASSIUM 4.2 MMOL/L (3.6-5.0); SODIUM 143 MMOL/L (135-145); TOTAL PROTEIN 7.7 GM/DL (6.4-8.2)
[~2019-01-24 14:14] MED LIST changes: +HYDR-3816 PO; +PANT40TA3 PO
[2019-01-24 14:32] LABS: BASOPHILS % (AUTO) 1 % (0-10); EOSINOPHILS # (AUTO) 0.2 10^3/uL (0.0-0.3); EOSINOPHILS % (AUTO) 4 % (0-10); HEMATOCRIT 41 % (40-54); HEMOGLOBIN 13.2 G/DL (13.3-17.7); LYMPHOCYTES # (AUTO) 1.6 X 10^3 (1.0-4.0); LYMPHOCYTES % (AUTO) 32 % (12-44); MEAN CORPUSCULAR HEMOGLOBIN 27 PG (25-34); MEAN CORPUSCULAR HGB CONC 32 G/DL (32-36); MEAN CORPUSCULAR VOLUME 82 FL (80-99); MEAN PLATELET VOLUME 9.5 FL (7.4-10.4); MONOCYTES # (AUTO) 0.5 X 10^3 (0.0-1.0); MONOCYTES % (AUTO) 10 % (0-12); NEUTROPHILS # (AUTO) 2.6 X 10^3 (1.8-7.8); NEUTROPHILS % (AUTO) 53 % (42-75); PLATELET COUNT 280 10^3/uL (130-400); RED CELL DISTRIBUTION WIDTH 19.8 % (10.0-14.5); WHITE BLOOD COUNT 4.9 10^3/uL (4.3-11.0)
[2019-01-24 14:49] LABS: ALANINE AMINOTRANSFERASE 36 U/L (0-55); ALBUMIN 4.4 GM/DL (3.2-4.5); ALKALINE PHOSPHATASE 61 U/L (40-136); BILIRUBIN,TOTAL 0.5 MG/DL (0.1-1.0); BUN/CREATININE RATIO 10; CALCIUM 9.7 MG/DL (8.5-10.1); CARBON DIOXIDE 25 MMOL/L (21-32); CHLORIDE 106 MMOL/L (98-107); CREATININE SERUM 0.94 MG/DL (0.60-1.30); GFR ESTIMATED > 60; GLUCOSE 83 MG/DL (70-105); SODIUM 142 MMOL/L (135-145); TOTAL PROTEIN 7.3 GM/DL (6.4-8.2)
== END 2019-03-26 | disposition home or self-care (01) ==
LOC: ONC 14:14
PROVIDERS: ATTEND Internal Medicine Hematology & Oncology
DX: D50.0 Iron deficiency anemia secondary to blood loss (chronic) (principal); M19.90 Unspecified osteoarthritis, unspecified site; Z92.89 Personal history of other medical treatment
CPT/HCPCS: 36415; 80053; 82728; 83540; 85025; 99213

== ENCOUNTER 2019-04-18 14:52 | Outpatient (RCR) | payer BC, OTHER ==
[~2019-04-18 14:52] MED LIST changes: +HYDR-34 PO; -HYDR-3816 PO
[2019-04-18 15:22] LABS: BASOPHILS % (AUTO) 1 % (0-10); EOSINOPHILS # (AUTO) 0.2 10^3/uL (0.0-0.3); EOSINOPHILS % (AUTO) 3 % (0-10); HEMATOCRIT 45 % (40-54); HEMOGLOBIN 15.4 G/DL (13.3-17.7); LYMPHOCYTES % (AUTO) 32 % (12-44); MEAN CORPUSCULAR HEMOGLOBIN 29 PG (25-34); MEAN CORPUSCULAR HGB CONC 34 G/DL (32-36); MEAN CORPUSCULAR VOLUME 86 FL (80-99); MEAN PLATELET VOLUME 10.1 FL (7.4-10.4); MONOCYTES # (AUTO) 0.6 X 10^3 (0.0-1.0); MONOCYTES % (AUTO) 10 % (0-12); NEUTROPHILS # (AUTO) 3.5 X 10^3 (1.8-7.8); NEUTROPHILS % (AUTO) 55 % (42-75); PLATELET COUNT 230 10^3/uL (130-400); RED CELL DISTRIBUTION WIDTH 15.3 % (10.0-14.5); WHITE BLOOD COUNT 6.3 10^3/uL (4.3-11.0)
[2019-04-18 15:36] LABS: ALANINE AMINOTRANSFERASE 35 U/L (0-55); ALBUMIN 4.5 GM/DL (3.2-4.5); ALKALINE PHOSPHATASE 79 U/L (40-136); BILIRUBIN,TOTAL 0.5 MG/DL (0.1-1.0); BUN/CREATININE RATIO 10; CALCIUM 9.8 MG/DL (8.5-10.1); CARBON DIOXIDE 30 MMOL/L (21-32); CHLORIDE 106 MMOL/L (98-107); CREATININE SERUM 1.06 MG/DL (0.60-1.30); GFR ESTIMATED > 60; GLUCOSE 118 MG/DL (70-105); POTASSIUM 4.3 MMOL/L (3.6-5.0); SODIUM 144 MMOL/L (135-145); TOTAL PROTEIN 7.5 GM/DL (6.4-8.2)
== END 2019-07-17 | disposition home or self-care (01) ==
LOC: ONC 14:52
PROVIDERS: ATTEND Internal Medicine Hematology & Oncology
DX: D50.0 Iron deficiency anemia secondary to blood loss (chronic) (principal); M19.90 Unspecified osteoarthritis, unspecified site; Z92.89 Personal history of other medical treatment
CPT/HCPCS: 36415; 80053; 82728; 85025; 99213

== ENCOUNTER → 2020-05-29 | Outpatient (CLI) | payer BC, OTHER ==
[~2020-05-29] MED LIST changes: -PANT40TA3 PO; +PANT40TA52 PO
== END ==
LOC: CARD 09:17
PROVIDERS: ATTEND Internal Medicine Cardiovascular Disease
DX: I11.9 Hypertensive heart disease without heart failure (principal)
CPT/HCPCS: 93306; 93351

== ENCOUNTER → 2021-08-19 | Outpatient (CLI) | payer BC ==
[~2021-08-19] MED LIST changes: +CYCL10TA25 PO; -CYCL10TA9 PO
--- NOTE | 2021-08-19 17:07 | Diagnostic Imaging Report ---
EXAMINATION: Chest 2 view HISTORY: WHEEZING, COUGH COMPARISON: 12/01/2018 FINDINGS: Heart size and pulmonary vasculature are normal. There are patchy interstitial opacities throughout both lungs. No pleural effusion or pneumothorax. Findings suggestive of a hiatal hernia, unchanged. Degenerative changes of the thoracic spine. Osseous structures are otherwise intact. IMPRESSION: 1. Patchy interstitial opacities throughout the lungs could be seen with pulmonary edema or atypical infection. Dictated by: Dictated on workstation # [id number]
== END ==
LOC: RAD FS 15:43
PROVIDERS: ATTEND Family Medicine
DX: R91.8 Other nonspecific abnormal finding of lung field (principal); R06.2 Wheezing; R05.9 Cough, unspecified
CPT/HCPCS: 71046

== ENCOUNTER 2022-09-29 05:03 | Emergency (ER) | payer BC ==
[~2022-09-29] VITALS: Ht 177.8 cm; Wt 65.8 kg
[~2022-09-29 05:03] MED LIST changes: +FERR325T18 PO; +HYDR-3817 PO; +MELA10TA2 PO; +METO50TA7 PO; +PREG100C55 PO; +RT-ALBUINH INH; +TRAZ-227 PO
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
[2022-09-29 05:30] LABS: BASOPHILS # (AUTO) 0.1 10^3/uL (0.0-0.1); BASOPHILS % (AUTO) 1 % (0-10); EOSINOPHILS # (AUTO) 0.1 10^3/uL (0.0-0.3); EOSINOPHILS % (AUTO) 1 % (0-10); HEMATOCRIT 44 % (40-54); HEMOGLOBIN 13.1 g/dL (13.3-17.7); LYMPHOCYTES # (AUTO) 0.6 10^3/uL (1.0-4.0); LYMPHOCYTES % (AUTO) 7 % (12-44); MEAN CORPUSCULAR HEMOGLOBIN 25 pg (25-34); MEAN CORPUSCULAR HGB CONC 30 g/dL (32-36); MEAN CORPUSCULAR VOLUME 84 fL (80-99); MONOCYTES # (AUTO) 0.4 10^3/uL (0.0-1.0); MONOCYTES % (AUTO) 5 % (0-12); NEUTROPHILS # (AUTO) 7.7 10^3/uL (1.8-7.8); NEUTROPHILS % (AUTO) 86 % (42-75); PLATELET COUNT 160 10^3/uL (130-400)
[2022-09-29] MEDS ORDERED: IBUPROFEN 200 MG TABLET PO ONE (05:30)
[2022-09-29 05:32] LABS: BILIRUBIN,URINE NEGATIVE (NEGATIVE); CLARITY,URINE CLEAR; COLOR,URINE YELLOW; GLUCOSE, URINE (UA) NEGATIVE (NEGATIVE); KETONES,URINE NEGATIVE (NEGATIVE); LEUKOCYTE ESTERASE ,URINE NEGATIVE (NEGATIVE); NITRITE,URINE NEGATIVE (NEGATIVE); PH,URINE 5.5 (5-9); PROTEIN,URINE NEGATIVE (NEGATIVE)
[2022-09-29 05:49] LABS: BACTERIA,URINE NEGATIVE /HPF; RBC,URINE RARE /HPF; SQUAMOUS EPITHELIAL CELL,UR RARE /HPF; WBC,URINE RARE /HPF
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
[2022-09-29 06:00] LABS: AMPHETAMINE SCREEN, URINE NEGATIVE (NEGATIVE); BARBITURATE SCREEN URINE NEGATIVE (NEGATIVE); BENZODIAZEPINES SCREEN URINE NEGATIVE (NEGATIVE); CANNABINOID SCREEN, URINE NEGATIVE (NEGATIVE); COCAINE SCREEN URINE NEGATIVE (NEGATIVE); METHADONE STAT NEGATIVE (NEGATIVE); OPIATE SCREEN URINE POSITIVE (NEGATIVE); OXYCODONE STAT NEGATIVE (NEGATIVE); PROPOXYPHENE STAT NEGATIVE (NEGATIVE); TRICYCLIC ANTIDEPRESSANTS SCRE NEGATIVE (NEGATIVE)
[2022-09-29 06:01] LABS: BAND NEUTROPHILS 13 %; EOSINOPHILS % (MANUAL) 1 %; LYMPHOCYTES % (MANUAL) 11 %; MONOCYTES % (MANUAL) 2 %; NEUTROPHILS % (MANUAL) 72 %
[2022-09-29 06:02] LABS: ANISOCYTOSIS MARKED; HYPOCHROMASIA MODERATE; METAMYELOCYTES % 1 %; PLATELET ESTIMATE NORMAL; POIKILOCYTOSIS MODERATE; RBC MORPH ABNORMAL
[2022-09-29 06:03] LABS: ELLIPT/OVALOCYTES MODERATE; MICROCYTOSIS MODERATE; SCHISTOCYTES SLIGHT; TEAR DROP CELLS SLIGHT
[2022-09-29 06:05] LABS: POTASSIUM 4.2 MMOL/L (3.6-5.0); SODIUM 141 MMOL/L (135-145)
[2022-09-29 06:06] LABS: BUN/CREATININE RATIO 10; CARBON DIOXIDE 27 MMOL/L (21-32); CHLORIDE 105 MMOL/L (98-107); GFR ESTIMATED 84
[2022-09-29 06:12] LABS: CALCIUM 9.2 MG/DL (8.5-10.1); GLUCOSE 115 MG/DL (70-105)
[2022-09-29 06:13] LABS: ALANINE AMINOTRANSFERASE 21 U/L (0-55); ALBUMIN 4.1 GM/DL (3.2-4.5); ALKALINE PHOSPHATASE 55 U/L (40-136); BILIRUBIN,TOTAL 0.6 MG/DL (0.1-1.0); TOTAL PROTEIN 6.6 GM/DL (6.4-8.2)
--- NOTE | 2022-09-29 06:31 | Diagnostic Imaging Report ---
PROCEDURE: CT head without contrast. TECHNIQUE: Multiple contiguous axial images were obtained through the brain without the use of intravenous contrast. Auto Exposure Controls were utilized during the CT exam to meet ALARA standards for radiation dose reduction. INDICATION: 66-year-old male, confusion. Fever. CORRELATION: None FINDINGS: There are diffuse atrophic changes with prominence of the ventricles and sulci. No abnormal areas of attenuation to suggest edema from ischemia. There is no midline shift or mass effect. No evidence for acute intracranial hemorrhage or abnormal extra-axial fluid collection. Bony calvarium is intact. Mild mucosal thickening in a few ethmoid air cells. Trace air-fluid right maxillary sinus. Hypoplastic left maxillary sinus with mild mucosal thickening. Small amount of cerumen left external auditory canal. IMPRESSION: 1. No CT evidence for acute intracranial abnormality. 2. Mild sinusitis. Dictated by: Dictated on workstation # [id number]
[2022-09-29] MEDS ORDERED: AZIT250T12 PO (06:42)
[2022-09-29 06:48] VITALS: BP 136/85
== END 2022-09-29 06:48 | disposition home or self-care (01) ==
LOC: EDUNIT# 05:03 → ER FS 05:05
DX: R41.0 Disorientation, unspecified (principal); J40 Bronchitis, not specified as acute or chronic; Z20.822 Contact with and (suspected) exposure to COVID-19; W22.09XA Striking against other stationary object, initial encounter; Y92.524 Gas station as the place of occurrence of the external cause
CPT/HCPCS: 36415; 70450; 71045; 80053; 80306; 81000; 85007; 85027; 87636; 99284; G0480; 80320